=== PATIENT | female | born 1945 | race Caucasian/White ===

== ENCOUNTER 2016-06-16 07:38 | Inpatient (IN) | payer MEDICARE, OTHER ==
[~2016-06-16] VITALS: Ht 154.9 cm; Wt 62.6 kg
[2016-06-16 08:58] LABS: Basophils # (auto) 0.1 uL; Basophils % (auto) 0.6 % (0.0-2.0); Eosinophils # (auto) 0 uL; Eosinophils % (auto) 0.5 % (0.0-7.0); Hematocrit 42.6 % (36.0-46.0); Hemoglobin 13.4 g/dL (12.2-16.2); Lymphocytes # (auto) 1.1 uL; Lymphocytes % (auto) 12.5 % (10.0-50.0); Mean Corpuscular Hgb Conc. 31.4 g/dL (32.0-36.0); Mean Corpuscular Volume 92.4 fL (80.0-100.0); Mean Platelet Volume 7.9 fL (7.4-10.4); Monocytes # (auto) 0.6 uL; Monocytes % (auto) 7.4 % (0.0-12.0); Neutrophils # (auto) 6.7 uL; Platelet Count (auto) 258 10^3/uL (140-450); Red Cell Distribution Width 15.5 % (11.6-16.0); White Blood Cell 8.5 10^3/uL (4.4-10.8)
[2016-06-16 09:05] LABS: Bilirubin, Total 0.4 mg/dL (0.2-1.0); Potassium 3.8 mmol/L (3.5-5.1); Total Protein 6.9 g/dL (6.4-8.2)
[2016-06-16] MEDS ORDERED: FUROSEMIDE 40 MG/4 ML VIAL IV ONE ×2 (11:45→13:00)
[2016-06-16] MEDS ORDERED: LEVOFLOXACIN 500MG 100 ML IV ONE (11:45)
[2016-06-16 12:29] LABS: Urine Bilirubin Negative (Negative); Urine Blood Negative /uL (Negative); Urine Color Yellow (Yellow); Urine Glucose Normal (Normal); Urine Hyaline Cast FEW /lpf (0 - 2); Urine Ketone Negative (Negative); Urine Mucus FEW (None Seen); Urine Nitrite Negative (Negative); Urine RBC 1 /hpf (0 - 4); Urine Squamous Epithelial Cell MOD /hpf (<5); Urine Urobilinogen Normal (Negative); Urine pH 5.5 (5.0-8.0)
[2016-06-16] MEDS ORDERED: OSELTAMIVIR 75 MG CAP PO ONE (12:30)
[2016-06-16] MEDS ORDERED: PROMETHAZINE HCL 25 MG/ML 1ML IV PRN (12:30)
[2016-06-16] MEDS ORDERED: MORPHINE SULF INJ 2 MG/ML SYRINGE 1ML IV PRN (12:30)
[2016-06-16] MEDS ORDERED: ALBUTEROL SULF 2.5 MG/0.5ML(0.5%) NEB SOLN NEB PRN (12:30)
[2016-06-16] MEDS ORDERED: LACTULOSE 20Gm/30ML SOLN PO PRN (12:30)
[2016-06-16] MEDS ORDERED: NITROGLYCERIN 0.4 MG SL TAB SL PRN (12:30)
[2016-06-16] MEDS ORDERED: ACETAMINOPHEN 500 MG TAB PO PRN (12:30)
[2016-06-16] MEDS ORDERED: LORazepam 0.5 MG TAB PO PRN (12:30)
[2016-06-16 13:00] LABS: INR 1.03 (0.9-1.15); Partial Thromboplastin Time 23.8 sec (22.64-33.71); Prothrombin Time 10.6 sec (9.37-12.3)
[2016-06-16] MEDS ORDERED: ENALAPRIL MALEATE 2.5 MG TAB PO ONE (13:00)
[2016-06-16] MEDS ORDERED: ENOXAPARIN SOD 40 MG/0.4 ML SYRINGE SC ONE (13:00)
[2016-06-16] MEDS ORDERED: ASPirin 81 mg TAB PO ONE (13:00)
[2016-06-16] MEDS ORDERED: CARVEDILOL 3.125 MG TAB PO ONE (13:00)
[2016-06-16] MEDS: SODIUM CHLOR 0.9% PF (SALINE LOCK) 10ML VIAL IV SCH ×2 (14:03→22:00)
[2016-06-16 14:57] LABS: B-Type Natriuretic Peptide 1668.04 pg/mL (0-100)
[2016-06-16 14:58] LABS: Temperature: 21.9 C (20.0-25.0)
[2016-06-16 15:50] VITALS: BP 132/77
[2016-06-16 17:00] VITALS: BP 127/81
[2016-06-16] MEDS: HYDROcodone-ACET 5/325MG TAB PO PRN (19:40)
[2016-06-16] MEDS: IPRATROPIUM BROM 0.5 MG/2.5ML INH SOL NEB SCH (20:03)
[2016-06-16] MEDS: ALBUTEROL SULF 2.5 MG/0.5ML(0.5%) NEB SOLN NEB SCH (20:03)
[2016-06-16] MEDS: CARVEDILOL 3.125 MG TAB PO SCH (22:00)
[2016-06-16] MEDS: OSELTAMIVIR 75 MG CAP PO SCH (22:00)
[2016-06-16 22:39] VITALS: BP 142/84
[2016-06-17] MEDS: ALBUTEROL SULF 2.5 MG/0.5ML(0.5%) NEB SOLN NEB SCH ×4 (02:08→19:11)
[2016-06-17] MEDS: IPRATROPIUM BROM 0.5 MG/2.5ML INH SOL NEB SCH ×4 (02:08→19:11)
[2016-06-17 03:25] VITALS: BP 138/79
[2016-06-17] MEDS: MORPHINE SULF INJ 2 MG/ML SYRINGE 1ML IV PRN (04:32)
[2016-06-17 05:10] VITALS: BP 133/84
[2016-06-17] MEDS: SODIUM CHLOR 0.9% PF (SALINE LOCK) 10ML VIAL IV SCH ×3 (05:42→21:31)
[2016-06-17 06:26] LABS: Basophils # (auto) 0.1 uL; Basophils % (auto) 0.7 % (0.0-2.0); Eosinophils # (auto) 0.2 uL; Eosinophils % (auto) 2.4 % (0.0-7.0); Hematocrit 41.3 % (36.0-46.0); Hemoglobin 13.3 g/dL (12.2-16.2); Lymphocytes # (auto) 1.8 uL; Mean Corpuscular Hemoglobin 29.5 pg (28.0-32.0); Mean Corpuscular Hgb Conc. 32.1 g/dL (32.0-36.0); Mean Corpuscular Volume 92.1 fL (80.0-100.0); Mean Platelet Volume 8.2 fL (7.4-10.4); Monocytes # (auto) 0.9 uL; Monocytes % (auto) 11.2 % (0.0-12.0); Neutrophils # (auto) 5.1 uL; Neutrophils % (auto) 63.7 % (37.0-80.0); Platelet Count (auto) 241 10^3/uL (140-450); Red Cell Distribution Width 15.1 % (11.6-16.0)
[2016-06-17 07:06] LABS: Albumin 2.8 g/dL (3.4-5.0); BUN/Creatinine Ratio 29.4; Bilirubin, Total 0.5 mg/dL (0.2-1.0); Calcium 7.9 mg/dL (8.5-10.1); Potassium 3.5 mmol/L (3.5-5.1); Total Protein 6.5 g/dL (6.4-8.2)
[2016-06-17 08:40] VITALS: BP 136/81
[2016-06-17 10:00] LABS: B-Type Natriuretic Peptide 2255.26 pg/mL (0-100); Temperature: 22.5 C (20.0-25.0)
[2016-06-17] MEDS ORDERED: ENALAPRIL MALEATE 2.5 MG TAB PO SCH (10:00)
[2016-06-17] MEDS ORDERED: POTASSIUM CHL 20 Meq TABLET PO SCH (10:00)
[2016-06-17] MEDS ORDERED: FUROSEMIDE 40 MG/4 ML VIAL IV SCH (10:00)
[2016-06-17] MEDS ORDERED: LEVOFLOXACIN 500MG 100 ML IV SCH (10:00)
[2016-06-17] MEDS: ENOXAPARIN SOD 40 MG/0.4 ML SYRINGE SC SCH (11:06)
[2016-06-17] MEDS: ASPirin 81 mg TAB PO SCH (11:08)
[2016-06-17] MEDS: CARVEDILOL 3.125 MG TAB PO SCH ×2 (11:09→21:31)
[2016-06-17] MEDS: OSELTAMIVIR 75 MG CAP PO SCH ×2 (11:10→22:00)
[2016-06-17 12:44] VITALS: BP 116/64
[2016-06-17 17:27] VITALS: BP 137/77
[2016-06-17] MEDS ORDERED: ASPI-231 PO (17:53)
[2016-06-17] MEDS ORDERED: DIPH25CA66 PO (17:53)
[2016-06-17] MEDS: POTASSIUM CHL 20 Meq TABLET PO SCH (20:06)
[2016-06-17] MEDS: FUROSEMIDE 40 MG/4 ML VIAL IV SCH (20:12)
[2016-06-17] MEDS: TEMAZEPAM 15 MG CAP PO PRN (21:30)
[2016-06-17 21:49] VITALS: BP 134/87
[2016-06-17] MEDS: HYDROcodone-ACET 5/325MG TAB PO PRN (23:29)
[2016-06-18 04:36] VITALS: BP 107/61
[2016-06-18 05:38] LABS: BUN/Creatinine Ratio 33.3; Calcium 8.4 mg/dL (8.5-10.1); Potassium 3.9 mmol/L (3.5-5.1)
[2016-06-18] MEDS: POTASSIUM CHL 20 Meq TABLET PO SCH ×2 (05:45→18:32)
[2016-06-18] MEDS: FUROSEMIDE 40 MG/4 ML VIAL IV SCH ×2 (05:45→18:31)
[2016-06-18] MEDS: SODIUM CHLOR 0.9% PF (SALINE LOCK) 10ML VIAL IV SCH ×3 (05:46→22:24)
[2016-06-18] MEDS: ALBUTEROL SULF 2.5 MG/0.5ML(0.5%) NEB SOLN NEB SCH ×4 (06:05→18:37)
[2016-06-18] MEDS: IPRATROPIUM BROM 0.5 MG/2.5ML INH SOL NEB SCH ×4 (06:05→18:37)
[2016-06-18 06:07] LABS: B-Type Natriuretic Peptide 1424.65 pg/mL (0-100); Temperature: 20.6 C (20.0-25.0)
[2016-06-18] MEDS: ENALAPRIL MALEATE 2.5 MG TAB PO SCH (08:59)
[2016-06-18] MEDS: CARVEDILOL 3.125 MG TAB PO SCH ×2 (08:59→22:25)
[2016-06-18 09:00] VITALS: BP 122/75
[2016-06-18] MEDS: ASPirin 81 mg TAB PO SCH (09:00)
[2016-06-18] MEDS: ENOXAPARIN SOD 40 MG/0.4 ML SYRINGE SC SCH (09:00)
[2016-06-18] MEDS ORDERED: cefTRIAXone 1GM/50ML D5W 50 ML IV ONE (11:30)
[2016-06-18 13:00] VITALS: BP 95/53
[2016-06-18 16:53] VITALS: BP 99/65
[2016-06-18 22:00] VITALS: BP 119/75
[2016-06-18] MEDS: TEMAZEPAM 15 MG CAP PO PRN (22:24)
[2016-06-19 05:00] VITALS: BP 125/57
[2016-06-19] MEDS: POTASSIUM CHL 20 Meq TABLET PO SCH ×2 (05:36→17:57)
[2016-06-19] MEDS: SODIUM CHLOR 0.9% PF (SALINE LOCK) 10ML VIAL IV SCH ×3 (05:36→21:55)
[2016-06-19] MEDS: FUROSEMIDE 40 MG/4 ML VIAL IV SCH ×2 (05:36→17:57)
[2016-06-19] MEDS: IPRATROPIUM BROM 0.5 MG/2.5ML INH SOL NEB SCH ×4 (06:38→19:04)
[2016-06-19] MEDS: ALBUTEROL SULF 2.5 MG/0.5ML(0.5%) NEB SOLN NEB SCH ×4 (06:38→19:04)
[2016-06-19 09:00] VITALS: BP 110/75
[2016-06-19] MEDS: CARVEDILOL 3.125 MG TAB PO SCH ×2 (10:00→21:45)
[2016-06-19] MEDS: ENOXAPARIN SOD 40 MG/0.4 ML SYRINGE SC SCH (11:36)
[2016-06-19] MEDS: cefTRIAXone 1GM/50ML D5W 50 ML IV SCH (11:36)
[2016-06-19] MEDS: ASPirin 81 mg TAB PO SCH (11:36)
[2016-06-19] MEDS: ENALAPRIL MALEATE 2.5 MG TAB PO SCH (11:36)
[2016-06-19 13:00] VITALS: BP 101/55
[2016-06-19 16:57] VITALS: BP 121/66
[2016-06-19] MEDS: TEMAZEPAM 15 MG CAP PO PRN (21:45)
[2016-06-19] MEDS: HYDROcodone-ACET 5/325MG TAB PO PRN (21:46)
[2016-06-19 22:00] VITALS: BP 116/59
[2016-06-20] MEDS: ALBUTEROL SULF 2.5 MG/0.5ML(0.5%) NEB SOLN NEB SCH ×4 (00:50→18:25)
[2016-06-20] MEDS: IPRATROPIUM BROM 0.5 MG/2.5ML INH SOL NEB SCH ×4 (00:50→18:25)
[2016-06-20 01:44] VITALS: BP 116/59
[2016-06-20 05:00] VITALS: BP 112/72
[2016-06-20] MEDS: POTASSIUM CHL 20 Meq TABLET PO SCH ×2 (05:31→18:20)
[2016-06-20] MEDS: HYDROcodone-ACET 5/325MG TAB PO PRN (05:32)
[2016-06-20] MEDS: FUROSEMIDE 40 MG/4 ML VIAL IV SCH ×2 (05:32→18:20)
[2016-06-20] MEDS: SODIUM CHLOR 0.9% PF (SALINE LOCK) 10ML VIAL IV SCH ×3 (05:38→22:02)
[2016-06-20 09:00] VITALS: BP 105/63
[2016-06-20] MEDS: cefTRIAXone 1GM/50ML D5W 50 ML IV SCH (09:47)
[2016-06-20] MEDS: ASPirin 81 mg TAB PO SCH (09:51)
[2016-06-20] MEDS: ENALAPRIL MALEATE 2.5 MG TAB PO SCH (09:53)
[2016-06-20] MEDS: CARVEDILOL 3.125 MG TAB PO SCH ×2 (09:53→22:03)
[2016-06-20] MEDS: ENOXAPARIN SOD 40 MG/0.4 ML SYRINGE SC SCH (09:54)
[2016-06-20 13:00] VITALS: BP 108/50
[2016-06-20 13:33] LABS: BUN/Creatinine Ratio 37.5; Calcium 9.1 mg/dL (8.5-10.1); Potassium 4.7 mmol/L (3.5-5.1)
[2016-06-20 13:59] LABS: B-Type Natriuretic Peptide 325.31 pg/mL (0-100); Temperature: 22.3 C (20.0-25.0)
[2016-06-20 16:53] VITALS: BP 121/96
[2016-06-20] MEDS: MORPHINE SULF INJ 2 MG/ML SYRINGE 1ML IV PRN (18:57)
[2016-06-20 22:00] VITALS: BP 114/76
[2016-06-20] MEDS: TEMAZEPAM 15 MG CAP PO PRN (22:45)
[2016-06-21] MEDS: ALBUTEROL SULF 2.5 MG/0.5ML(0.5%) NEB SOLN NEB SCH ×3 (00:28→13:20)
[2016-06-21] MEDS: IPRATROPIUM BROM 0.5 MG/2.5ML INH SOL NEB SCH ×3 (00:28→13:20)
[2016-06-21 05:00] VITALS: BP 119/74
[2016-06-21] MEDS: POTASSIUM CHL 20 Meq TABLET PO SCH (05:40)
[2016-06-21] MEDS: FUROSEMIDE 40 MG/4 ML VIAL IV SCH (05:40)
[2016-06-21] MEDS: HYDROcodone-ACET 5/325MG TAB PO PRN (05:41)
[2016-06-21] MEDS: SODIUM CHLOR 0.9% PF (SALINE LOCK) 10ML VIAL IV SCH (06:16)
[2016-06-21 09:00] VITALS: BP 99/69
[2016-06-21] MEDS: cefTRIAXone 1GM/50ML D5W 50 ML IV SCH (09:47)
[2016-06-21] MEDS: ENOXAPARIN SOD 40 MG/0.4 ML SYRINGE SC SCH (09:47)
[2016-06-21] MEDS: CARVEDILOL 3.125 MG TAB PO SCH (09:47)
[2016-06-21] MEDS: ASPirin 81 mg TAB PO SCH (09:48)
[2016-06-21] MEDS: ENALAPRIL MALEATE 2.5 MG TAB PO SCH (09:55)
[2016-06-21 13:00] VITALS: BP 119/98
[2016-06-21 13:54] VITALS: BP 119/98
== END 2016-06-21 16:15 | disposition home or self-care (01) | DRG 291 ==
LOC: ER 07:46 → TELE 07:47 → TELE-EAST 14:42
PROVIDERS: ADMIT Internal Medicine; ATTEND Internal Medicine Pulmonary Disease
DX: I11.0 Hypertensive heart disease with heart failure (principal); J18.9 Pneumonia, unspecified organism; J96.00 Acute respiratory failure, unspecified whether with hypoxia or hypercapnia; N39.0 Urinary tract infection, site not specified; J44.1 Chronic obstructive pulmonary disease with (acute) exacerbation; I50.43 Acute on chronic combined systolic (congestive) and diastolic (congestive) heart failure; E78.5 Hyperlipidemia, unspecified; F17.210 Nicotine dependence, cigarettes, uncomplicated; Z80.3 Family history of malignant neoplasm of breast; Z81.8 Family history of other mental and behavioral disorders; Z82.3 Family history of stroke; Z82.49 Family history of ischemic heart disease and other diseases of the circulatory system; Z83.3 Family history of diabetes mellitus
CPT/HCPCS: 36415; 36600; 71010; 71020; 80048; 80053; 80061; 81001; 82550; 82805; 83605; 83735; 83880; 84443; 84484; 85025; 85610; 85730; 87040; 87086; 87088; 87186; 87400; 93005; 93306; 94640; 96365; 96372; 96375; 96376; J0696; J1956

== ENCOUNTER → 2016-07-27 | Outpatient (CLI) | payer MEDICARE, OTHER ==
[~2016-07-27] MED LIST: ALBUTEROL SULF 2.5 MG/0.5ML(0.5%) NEB SOLN ONE; ASPI-231 PO; DIPH25CA66 PO
== END | disposition home or self-care (01) ==
LOC: RT 08:38
PROVIDERS: ATTEND Internal Medicine Pulmonary Disease
DX: R06.09 Other forms of dyspnea (principal)
CPT/HCPCS: 94060

== ENCOUNTER → 2016-07-28 | Outpatient (CLI) | payer MEDICARE, OTHER ==
[~2016-07-28] MED LIST changes: -ALBUTEROL SULF 2.5 MG/0.5ML(0.5%) NEB SOLN ONE
[2016-07-28 15:10] LABS: Albumin 3.5 g/dL (3.4-5.0); BUN/Creatinine Ratio 29.5; Bilirubin, Total 0.1 mg/dL (0.2-1.0); Calcium 9.2 mg/dL (8.5-10.1); Cholesterol 257 mg/dL (<200); HDL Cholesterol 39 mg/dL (40-59); LDL Cholesterol 180 mg/dL (<100); Potassium 4.6 mmol/L (3.5-5.1); Total Protein 8.3 g/dL (6.4-8.2); Triglycerides 368 mg/dL (<150)
[2016-07-28 15:15] LABS: Urine Bilirubin Negative (Negative); Urine Blood Negative /uL (Negative); Urine Color Yellow (Yellow); Urine Glucose Normal (Normal); Urine Hyaline Cast FEW /lpf (0 - 2); Urine Ketone Negative (Negative); Urine Nitrite Negative (Negative); Urine RBC <1 /hpf (0 - 4); Urine Squamous Epithelial Cell FEW /hpf (<5); Urine Urobilinogen Normal (Negative)
[2016-07-28 15:20] LABS: Basophils # (auto) 0 uL; Basophils % (auto) 0.4 % (0.0-2.0); Eosinophils # (auto) 0.6 uL; Eosinophils % (auto) 7.5 % (0.0-7.0); Hematocrit 43.6 % (36.0-46.0); Hemoglobin 13.6 g/dL (12.2-16.2); Mean Corpuscular Hgb Conc. 31.2 g/dL (32.0-36.0); Mean Corpuscular Volume 89.6 fL (80.0-100.0); Mean Platelet Volume 8.7 fL (7.4-10.4); Monocytes # (auto) 0.8 uL; Monocytes % (auto) 9.8 % (0.0-12.0); Neutrophils # (auto) 4.6 uL; Neutrophils % (auto) 57.3 % (37.0-80.0); Platelet Count (auto) 314 10^3/uL (140-450); Red Cell Distribution Width 14.5 % (11.6-16.0); White Blood Cell 8.1 10^3/uL (4.4-10.8)
== END | disposition home or self-care (01) ==
LOC: LAB 12:59
DX: I50.9 Heart failure, unspecified (principal)
CPT/HCPCS: 36415; 80053; 80061; 81001; 84443; 85025

== ENCOUNTER → 2016-10-24 | Outpatient (CLI) | payer MEDICARE, OTHER ==
[2016-10-24 10:06] LABS: Urine RBC None Seen /hpf (0 - 4)
[2016-10-24 10:18] LABS: Basophils # (auto) 0.1 uL; Basophils % (auto) 0.9 % (0.0-2.0); Eosinophils # (auto) 0.6 uL; Eosinophils % (auto) 6.2 % (0.0-7.0); Hematocrit 41.8 % (36.0-46.0); Hemoglobin 14.4 g/dL (12.2-16.2); Lymphocytes # (auto) 2.6 uL; Lymphocytes % (auto) 27.6 % (10.0-50.0); Mean Corpuscular Hemoglobin 32.3 pg (28.0-32.0); Mean Corpuscular Hgb Conc. 34.4 g/dL (32.0-36.0); Mean Corpuscular Volume 93.8 fL (80.0-100.0); Mean Platelet Volume 8.4 fL (7.4-10.4); Monocytes # (auto) 0.6 uL; Monocytes % (auto) 6.9 % (0.0-12.0); Neutrophils # (auto) 5.5 uL; Neutrophils % (auto) 58.4 % (37.0-80.0); Platelet Count (auto) 264 10^3/uL (140-450); Red Cell Distribution Width 13.3 % (11.6-16.0); White Blood Cell 9.4 10^3/uL (4.4-10.8)
[2016-10-24 10:25] LABS: Urine Bilirubin Negative (Negative); Urine Blood Negative /uL (Negative); Urine Color Yellow (Yellow); Urine Glucose Normal (Normal); Urine Ketone Negative (Negative); Urine Nitrite Negative (Negative); Urine Squamous Epithelial Cell FEW /hpf (<5); Urine Urobilinogen Normal (Negative)
[2016-10-24 10:32] LABS: Albumin 4.1 g/dL (3.4-5.0); BUN/Creatinine Ratio 23.3; Bilirubin, Total 0.2 mg/dL (0.2-1.0); Calcium 9.4 mg/dL (8.5-10.1); Potassium 4.6 mmol/L (3.5-5.1); Total Protein 8.5 g/dL (6.4-8.2)
== END | disposition home or self-care (01) ==
LOC: LAB 09:48
DX: I10 Essential (primary) hypertension (principal)
CPT/HCPCS: 36415; 80053; 80061; 81001; 84443; 85025

== ENCOUNTER → 2017-02-21 | Outpatient (CLI) | payer MEDICARE | END | disposition home or self-care (01) | LOC: XYW 09:17 | PROVIDERS: ATTEND Internal Medicine | DX: I35.8 Other nonrheumatic aortic valve disorders (principal); I50.9 Heart failure, unspecified | CPT/HCPCS: 93306 ==

== ENCOUNTER 2017-03-19 12:11 | Inpatient (IN) | payer MEDICARE ==
[~2017-03-19] VITALS: Ht 152.4 cm; Wt 55.5 kg
[2017-03-19] VITALS (11 sets, daily range): BP systolic 106–148; BP diastolic 52–115
[2017-03-19] MEDS ORDERED: SODIUM CHLORIDE 0.9% 1,000 ML IVB ONE (12:41)
[2017-03-19 13:18] LABS: Hemoglobin 12.6 g/dL (12.2-16.2); Mean Corpuscular Hemoglobin 30.3 pg (28.0-32.0); Mean Corpuscular Hgb Conc. 33.1 g/dL (32.0-36.0); Mean Corpuscular Volume 91.5 fL (80.0-100.0); Mean Platelet Volume 8.2 fL (6.9-10.8); Platelet Count (auto) 214 10^3/uL (140-450); Red Cell Distribution Width 14.3 % (11.8-14.3)
[2017-03-19 13:24] LABS: White Blood Cell 33.7 10^3/uL (4.4-10.8)
[2017-03-19 13:26] LABS: INR 1.03 (0.9-1.15); Partial Thromboplastin Time 30.6 sec (22.64-33.71); Prothrombin Time 11.2 sec (9.37-12.3)
[2017-03-19 13:40] LABS: Albumin 3.4 g/dL (3.4-5.0); Amylase 39 U/L (25-115); BUN/Creatinine Ratio 16.8; Bilirubin, Total 0.7 mg/dL (0.2-1.0); Calcium 8.7 mg/dL (8.5-10.1); Magnesium 2.2 mg/dL (1.6-2.6); Total Protein 8.3 g/dL (6.4-8.2)
[2017-03-19 13:54] LABS: Metamyelocytes % 0; Myelocytes % 0; Promyelocytes % 0; Reactive Lymphocytes 0
[2017-03-19 13:55] LABS: Anisocytosis Slight; Platelet Estimate Adequate; Poikilocytosis Slight
[2017-03-19] MEDS ORDERED: cefTRIAXone 1GM/50ML D5W 50 ML IV ONE (14:00)
[2017-03-19] MEDS ORDERED: SODIUM CHLORIDE 0.9% 1,000 ML IV ONE (14:00)
[2017-03-19 14:05] LABS: Urine Bilirubin Negative (Negative); Urine Blood 2+ /uL (Negative); Urine Color Yellow (Yellow); Urine Glucose Normal (Normal); Urine Ketone Negative (Negative); Urine Mucus FEW (None Seen); Urine Nitrite POSITIVE (Negative); Urine RBC 6 /hpf (0 - 4); Urine Urobilinogen Normal (Negative); Urine WBC Clumps PRESENT /hpf (None Seen); Urine pH 5.5 (5.0-8.0)
[2017-03-19] MEDS ORDERED: VANCOMYCIN PER PHARMACY 0 MG IV SCH ×2 (15:15→15:30)
[2017-03-19] MEDS ORDERED: MORPHINE SULF INJ 2 MG/ML SYRINGE 1ML IV PRN (15:30)
[2017-03-19] MEDS ORDERED: NITROGLYCERIN 0.4 MG SL TAB SL PRN (15:30)
[2017-03-19] MEDS ORDERED: TEMAZEPAM 15 MG CAP PO PRN (15:30)
[2017-03-19] MEDS ORDERED: LORazepam 0.5 MG TAB PO PRN (15:30)
[2017-03-19] MEDS ORDERED: DEXTROSE (50%) 50ML SYRG IV PRN (15:30)
[2017-03-19] MEDS ORDERED: PIPERACILLIN-TAZOB 2.25GM 50 ML IV ONE (15:55)
[2017-03-19] MEDS ORDERED: ACETAMINOPHEN 325 MG TAB PO ONE ×2 (16:15)
[2017-03-19] MEDS ORDERED: VANCOMYCIN 1GM/250ML D5W 250 ML IV ONE (16:15)
[2017-03-19] MEDS: FAMOTIDINE (10MG/ML) 2ML VL IV SCH (16:29)
[2017-03-19] MEDS: SODIUM CHLORIDE 0.9% 1,000 ML IV SCH (16:43)
[2017-03-19] MEDS: MORPHINE SULF INJ 2 MG/ML SYRINGE 1ML IV PRN (16:51)
[2017-03-19] MEDS: PROMETHAZINE HCL 25 MG/ML 1ML IV PRN (16:51)
[2017-03-19] MEDS ORDERED: PIPERACILLIN-TAZOB 3.375GM 100 ML IV SCH (18:00)
[2017-03-19] MEDS: ACCU-CHEK COMFORT CURVE STRIP VI SCH (19:47)
[2017-03-19] MEDS: ACETAMINOPHEN 500 MG TAB PO PRN (19:47)
[2017-03-19] MEDS ORDERED: CARV6.2551 PO (23:31)
[2017-03-19] MEDS ORDERED: ATOR10TA52 PO (23:31)
[2017-03-19] MEDS ORDERED: POTA20TA53 PO (23:31)
[2017-03-19] MEDS ORDERED: FURO40TA4 PO (23:31)
[2017-03-19] MEDS ORDERED: VALS80TA44 PO (23:31)
[2017-03-19] MEDS ORDERED: ALBU18 IN (23:31)
[2017-03-19] MEDS ORDERED: IBUPROFEN 600 MG TAB PO ONE (23:50)
[2017-03-20] VITALS (59 sets, daily range): BP systolic 42–171; BP diastolic 17–101
[2017-03-20] MEDS ORDERED: IBUPROFEN 600 MG TAB PO ONE
[2017-03-20] MEDS ORDERED: ACETAMINOPHEN 650 MG RECT SUPP PR ONE (00:27)
[2017-03-20] MEDS ORDERED: LORazepam 2MG/ML-1ML VIAL IV ONE (00:30)
[2017-03-20] MEDS ORDERED: LORazepam 2MG/ML-1ML VIAL ONE ×2 (00:35→06:52)
[2017-03-20] MEDS: ACETAMINOPHEN 650 MG RECT SUPP PR PRN ×2 (01:03→06:15)
[2017-03-20] MEDS: SODIUM CHLORIDE 0.9% 1,000 ML IV SCH ×4 (01:30→12:00)
[2017-03-20] MEDS: IPRATROPIUM BROM 0.5 MG/2.5ML INH SOL NEB PRN ×2 (02:15→08:50)
[2017-03-20] MEDS: ALBUTEROL SULF 2.5 MG/0.5ML(0.5%) NEB SOLN NEB PRN ×2 (02:15→08:50)
[2017-03-20 04:09] LABS: Basophils # (auto) 0 uL; Basophils % (auto) 0.2 % (0.0-2.0); Eosinophils # (auto) 0 uL; Hematocrit 35.7 % (36.0-46.0); Hemoglobin 11.5 g/dL (12.2-16.2); Lymphocytes # (auto) 0.7 uL; Lymphocytes % (auto) 2.9 % (10.0-50.0); Mean Corpuscular Hemoglobin 30.2 pg (28.0-32.0); Mean Corpuscular Hgb Conc. 32.3 g/dL (32.0-36.0); Mean Corpuscular Volume 93.4 fL (80.0-100.0); Mean Platelet Volume 8.1 fL (6.9-10.8); Monocytes # (auto) 1.3 uL; Monocytes % (auto) 5.4 % (0.0-12.0); Neutrophils # (auto) 22.5 uL; Neutrophils % (auto) 91.5 % (37.0-80.0); Nucleated Red Blood Cells % 0.2 %; Platelet Count (auto) 171 10^3/uL (140-450); Red Cell Distribution Width 14.5 % (11.8-14.3); White Blood Cell 24.6 10^3/uL (4.4-10.8)
[2017-03-20 04:26] LABS: Albumin 2.7 g/dL (3.4-5.0); Calcium 7.5 mg/dL (8.5-10.1); Potassium 3.5 mmol/L (3.5-5.1)
[2017-03-20 04:35] LABS: BUN/Creatinine Ratio 14.3; Bilirubin, Total 0.4 mg/dL (0.2-1.0); Total Protein 6.2 g/dL (6.4-8.2)
[2017-03-20] MEDS: ACCU-CHEK COMFORT CURVE STRIP VI SCH ×4 (05:50→17:38)
[2017-03-20] MEDS: PIPERACILLIN-TAZOB 2.25GM 50 ML IV SCH ×4 (05:50→17:50)
[2017-03-20] MEDS: LORazepam 2MG/ML-1ML VIAL IV PRN ×2 (07:02→14:50)
[2017-03-20] MEDS: FAMOTIDINE (10MG/ML) 2ML VL IV SCH (10:31)
[2017-03-20] MEDS: ENOXAPARIN SOD 40 MG/0.4 ML SYRINGE SC SCH (10:32)
[2017-03-20] MEDS: BOOST PLUS 8 ounce PO SCH ×2 (12:00→18:00)
[2017-03-20] MEDS: VANCOMYCIN 1GM/250ML D5W 250 ML IV SCH (12:34)
[2017-03-20] MEDS: MORPHINE SULF INJ 2 MG/ML SYRINGE 1ML IV PRN ×2 (12:38→21:59)
[2017-03-20] MEDS ORDERED: NOREPINEPHRINE BITARTRATE 250 ML IV ONE (15:26)
[2017-03-20] MEDS: ACETAMINOPHEN 500 MG TAB PO PRN ×2 (15:50→21:59)
[2017-03-20] MEDS: NOREPINEPHRINE BITARTRATE 250 ML IV SCH (16:30)
[2017-03-20] MEDS: ALBUMIN 25% 100 ML IV SCH ×2 (18:16→19:00)
[2017-03-20] MEDS: IPRATROPIUM BROM 0.5 MG/2.5ML INH SOL NEB SCH (18:28)
[2017-03-20] MEDS: ALBUTEROL SULF 2.5 MG/0.5ML(0.5%) NEB SOLN NEB SCH (18:28)
[2017-03-20] MEDS ORDERED: PHENAZOPYRIDINE HCL 100 MG TAB PO ONE (21:45)
[2017-03-20] MEDS ORDERED: KETOROLAC TROMETH 30 MG/ML 1ML VIAL ONE (22:27)
[2017-03-20] MEDS ORDERED: KETOROLAC TROMETH 30 MG/ML 1ML VIAL IV ONE (22:30)
[2017-03-21] VITALS (31 sets, daily range): BP systolic 81–166; BP diastolic 35–88
[2017-03-21] MEDS: ALBUTEROL SULF 2.5 MG/0.5ML(0.5%) NEB SOLN NEB SCH ×4 (00:09→18:25)
[2017-03-21] MEDS: IPRATROPIUM BROM 0.5 MG/2.5ML INH SOL NEB SCH ×4 (00:09→18:25)
[2017-03-21] MEDS: ACCU-CHEK COMFORT CURVE STRIP VI SCH ×5 (00:30→23:51)
[2017-03-21] MEDS: HYDROcodone-ACET 5/325MG TAB PO PRN ×3 (00:49→20:34)
[2017-03-21] MEDS: ALBUTEROL SULF 2.5 MG/0.5ML(0.5%) NEB SOLN NEB PRN (03:44)
[2017-03-21] MEDS: IPRATROPIUM BROM 0.5 MG/2.5ML INH SOL NEB PRN (03:44)
[2017-03-21] MEDS: SODIUM CHLORIDE 0.9% 1,000 ML IV SCH (03:58)
[2017-03-21 04:09] LABS: Basophils # (auto) 0 uL; Basophils % (auto) 0.3 % (0.0-2.0); Eosinophils # (auto) 0 uL; Hematocrit 31.1 % (36.0-46.0); Hemoglobin 10.2 g/dL (12.2-16.2); Lymphocytes # (auto) 0.5 uL; Lymphocytes % (auto) 4.1 % (10.0-50.0); Mean Corpuscular Hemoglobin 30.2 pg (28.0-32.0); Mean Corpuscular Hgb Conc. 32.8 g/dL (32.0-36.0); Mean Corpuscular Volume 92.2 fL (80.0-100.0); Mean Platelet Volume 8.4 fL (6.9-10.8); Monocytes # (auto) 0.7 uL; Neutrophils # (auto) 10.1 uL; Neutrophils % (auto) 89.6 % (37.0-80.0); Platelet Count (auto) 143 10^3/uL (140-450); Red Cell Distribution Width 14.5 % (11.8-14.3); White Blood Cell 11.3 10^3/uL (4.4-10.8)
[2017-03-21 04:39] LABS: Albumin 2.6 g/dL (3.4-5.0); BUN/Creatinine Ratio 19.5; Calcium 7.5 mg/dL (8.5-10.1)
[2017-03-21 04:50] LABS: Bilirubin, Total 0.3 mg/dL (0.2-1.0); Total Protein 5.4 g/dL (6.4-8.2)
[2017-03-21 04:57] LABS: Potassium 2.9 mmol/L (3.5-5.1)
[2017-03-21 05:40] LABS: Temperature: 21.8 C (20.0-25.0)
[2017-03-21] MEDS: PIPERACILLIN-TAZOB 2.25GM 50 ML IV SCH ×3 (06:13→12:00)
[2017-03-21] MEDS ORDERED: POTASSIUM CHL 10% (20 MEQ/15ML) 15ml ORAL SOLN PO ONE (06:15)
[2017-03-21] MEDS: BOOST PLUS 8 ounce PO SCH ×3 (08:00→18:09)
[2017-03-21] MEDS: PHENAZOPYRIDINE HCL 100 MG TAB PO SCH ×3 (09:30→18:09)
[2017-03-21] MEDS: ENOXAPARIN SOD 40 MG/0.4 ML SYRINGE SC SCH (09:47)
[2017-03-21] MEDS: FAMOTIDINE (10MG/ML) 2ML VL IV SCH (09:47)
[2017-03-21] MEDS ORDERED: NICOTINE 14 MG/24HR TOPICAL PATCH TD ONE (10:45)
[2017-03-21] MEDS: VANCOMYCIN 1GM/250ML D5W 250 ML IV SCH (11:26)
[2017-03-21] MEDS: ACETAMINOPHEN 500 MG TAB PO PRN (13:00)
[2017-03-21] MEDS ORDERED: SODIUM CHLORIDE 0.9% 1,000 ML IV SCH (15:28)
[2017-03-21] MEDS: NOREPINEPHRINE BITARTRATE 250 ML IV SCH (15:57)
[2017-03-21] MEDS ORDERED: POTASSIUM CHL 20 Meq TABLET PO ONE (16:00)
[2017-03-21] MEDS ORDERED: KETOROLAC TROMETH 30 MG/ML 1ML VIAL IV ONE (21:15)
[2017-03-21] MEDS: cefTRIAXone 1GM/50ML D5W 50 ML IV SCH (21:18)
[2017-03-21] MEDS ORDERED: MORPHINE SULF INJ 2 MG/ML SYRINGE 1ML IV PRN (23:00)
[2017-03-21] MEDS ORDERED: NITROGLYCERIN 0.4 MG SL TAB SL PRN (23:00)
[2017-03-22] MEDS: IPRATROPIUM BROM 0.5 MG/2.5ML INH SOL NEB SCH ×4 (00:29→19:52)
[2017-03-22] MEDS: ALBUTEROL SULF 2.5 MG/0.5ML(0.5%) NEB SOLN NEB SCH ×4 (00:29→19:52)
[2017-03-22 05:00] VITALS: BP 115/65
[2017-03-22] MEDS: ACCU-CHEK COMFORT CURVE STRIP VI SCH (06:06)
[2017-03-22 06:28] LABS: Basophils # (auto) 0 uL; Basophils % (auto) 0.6 % (0.0-2.0); Eosinophils # (auto) 0.3 uL; Eosinophils % (auto) 3.8 % (0.0-7.0); Hematocrit 31.4 % (36.0-46.0); Hemoglobin 10.3 g/dL (12.2-16.2); Lymphocytes # (auto) 0.7 uL; Lymphocytes % (auto) 10.4 % (10.0-50.0); Mean Corpuscular Hemoglobin 30.4 pg (28.0-32.0); Mean Corpuscular Hgb Conc. 32.7 g/dL (32.0-36.0); Mean Corpuscular Volume 92.9 fL (80.0-100.0); Mean Platelet Volume 8.8 fL (6.9-10.8); Monocytes # (auto) 0.9 uL; Monocytes % (auto) 12.5 % (0.0-12.0); Neutrophils % (auto) 72.7 % (37.0-80.0); Platelet Count (auto) 146 10^3/uL (140-450); White Blood Cell 6.9 10^3/uL (4.4-10.8)
[2017-03-22 06:35] LABS: Potassium 3.6 mmol/L (3.5-5.1)
[2017-03-22 06:40] LABS: BUN/Creatinine Ratio 20.6; Calcium 8.2 mg/dL (8.5-10.1)
[2017-03-22] MEDS: BOOST PLUS 8 ounce PO SCH ×3 (08:00→18:17)
[2017-03-22] MEDS: HYDROcodone-ACET 5/325MG TAB PO PRN (08:40)
[2017-03-22] MEDS: FAMOTIDINE (10MG/ML) 2ML VL IV SCH (08:40)
[2017-03-22] MEDS: PHENAZOPYRIDINE HCL 100 MG TAB PO SCH ×2 (08:40→11:47)
[2017-03-22] MEDS: ENOXAPARIN SOD 40 MG/0.4 ML SYRINGE SC SCH (08:41)
[2017-03-22] MEDS: NICOTINE 14 MG/24HR TOPICAL PATCH TD SCH (08:41)
[2017-03-22] MEDS: cefTRIAXone 1GM/50ML D5W 50 ML IV SCH ×2 (08:51→21:13)
[2017-03-22 09:00] VITALS: BP 133/88
[2017-03-22] MEDS ORDERED: FUROSEMIDE 40 MG/4 ML VIAL IV ONE (10:15)
[2017-03-22] MEDS ORDERED: POTASSIUM CHL 10 Meq TABLET PO ONE (10:15)
[2017-03-22] MEDS: PROMETHAZINE HCL 25 MG/ML 1ML IV PRN (11:15)
[2017-03-22 13:00] VITALS: BP 145/89
[2017-03-22 17:00] VITALS: BP 120/69
[2017-03-22] MEDS ORDERED: PHENAZOPYRIDINE HCL 100 MG TAB PO SCH (18:00)
[2017-03-22 22:23] VITALS: BP 148/75
[2017-03-22] MEDS: CARVEDILOL 3.125 MG TAB PO SCH (22:34)
[2017-03-23 05:00] VITALS: BP 154/67
[2017-03-23 06:10] LABS: Basophils # (auto) 0 uL; Basophils % (auto) 0.4 % (0.0-2.0); Eosinophils # (auto) 0.1 uL; Eosinophils % (auto) 1.7 % (0.0-7.0); Hematocrit 33.3 % (36.0-46.0); Lymphocytes # (auto) 0.9 uL; Lymphocytes % (auto) 12.3 % (10.0-50.0); Mean Corpuscular Hemoglobin 30.2 pg (28.0-32.0); Mean Corpuscular Hgb Conc. 33.1 g/dL (32.0-36.0); Mean Corpuscular Volume 91.4 fL (80.0-100.0); Mean Platelet Volume 8.5 fL (6.9-10.8); Monocytes # (auto) 1.1 uL; Monocytes % (auto) 14.5 % (0.0-12.0); Neutrophils # (auto) 5.4 uL; Neutrophils % (auto) 71.1 % (37.0-80.0); Platelet Count (auto) 158 10^3/uL (140-450); Red Cell Distribution Width 14.7 % (11.8-14.3); White Blood Cell 7.6 10^3/uL (4.4-10.8)
[2017-03-23] MEDS: ALBUTEROL SULF 2.5 MG/0.5ML(0.5%) NEB SOLN NEB SCH ×4 (06:57→18:56)
[2017-03-23] MEDS: IPRATROPIUM BROM 0.5 MG/2.5ML INH SOL NEB SCH ×4 (06:57→18:56)
[2017-03-23 07:08] LABS: BUN/Creatinine Ratio 23.6; Calcium 8.6 mg/dL (8.5-10.1)
[2017-03-23 07:10] LABS: Potassium 2.9 mmol/L (3.5-5.1)
[2017-03-23] MEDS ORDERED: POTASSIUM CHL 20 Meq TABLET PO ONE ×2 (07:15→10:00)
[2017-03-23] MEDS: BOOST PLUS 8 ounce PO SCH ×3 (08:11→18:00)
[2017-03-23] MEDS: HYDROcodone-ACET 5/325MG TAB PO PRN ×3 (08:17→22:02)
[2017-03-23] MEDS: cefTRIAXone 1GM/50ML D5W 50 ML IV SCH ×2 (09:40→20:54)
[2017-03-23] MEDS: NICOTINE 14 MG/24HR TOPICAL PATCH TD SCH (09:50)
[2017-03-23] MEDS: ENOXAPARIN SOD 40 MG/0.4 ML SYRINGE SC SCH (09:50)
[2017-03-23] MEDS: ASPirin-EC 81 mg tab PO SCH (09:50)
[2017-03-23] MEDS: CARVEDILOL 3.125 MG TAB PO SCH ×2 (09:51→22:06)
[2017-03-23] MEDS ORDERED: POTASSIUM CHL 20 Meq TABLET PO SCH (10:00)
[2017-03-23] MEDS: FUROSEMIDE 20 MG TAB PO SCH (10:41)
[2017-03-23 22:00] VITALS: BP 115/65
[2017-03-23 22:34] VITALS: BP 115/65
[2017-03-24] MEDS: IPRATROPIUM BROM 0.5 MG/2.5ML INH SOL NEB SCH ×3 (00:44→11:37)
[2017-03-24] MEDS: ALBUTEROL SULF 2.5 MG/0.5ML(0.5%) NEB SOLN NEB SCH ×3 (00:45→11:37)
[2017-03-24 05:00] VITALS: BP 143/83
[2017-03-24 07:11] LABS: Calcium 8.5 mg/dL (8.5-10.1); Potassium 3.1 mmol/L (3.5-5.1)
[2017-03-24 07:18] LABS: BUN/Creatinine Ratio 22.6
[2017-03-24] MEDS ORDERED: LEVO-28 PO (09:08)
[2017-03-24] MEDS ORDERED: VALS40TA2 PO (09:08)
[2017-03-24] MEDS: BOOST PLUS 8 ounce PO SCH ×2 (09:15→11:38)
[2017-03-24] MEDS ORDERED: POTASSIUM CHL 20 Meq TABLET PO SCH (10:00)
[2017-03-24] MEDS: cefTRIAXone 1GM/50ML D5W 50 ML IV SCH (10:08)
[2017-03-24] MEDS: CARVEDILOL 3.125 MG TAB PO SCH (10:09)
[2017-03-24] MEDS: ENOXAPARIN SOD 40 MG/0.4 ML SYRINGE SC SCH (10:10)
[2017-03-24] MEDS: NICOTINE 14 MG/24HR TOPICAL PATCH TD SCH (10:10)
[2017-03-24] MEDS: FUROSEMIDE 20 MG TAB PO SCH (10:10)
[2017-03-24] MEDS: ASPirin-EC 81 mg tab PO SCH (10:10)
[2017-03-24 10:29] VITALS: BP 142/72
[2017-03-24 12:58] VITALS: BP 138/62
[2017-03-24] MEDS: HYDROcodone-ACET 5/325MG TAB PO PRN (13:51)
== END 2017-03-24 15:46 | disposition home health service (06) | DRG 871 ==
LOC: ER 12:11 → TELE 12:12 → ICU WEST 17:35 → CENTRAL 03-21 22:50 → TELE-CENTR 03-21 22:55
PROVIDERS: ADMIT Internal Medicine; ATTEND Internal Medicine
DX: A41.51 Sepsis due to Escherichia coli [E. coli] (principal); R65.21 Severe sepsis with septic shock; N17.0 Acute kidney failure with tubular necrosis; J96.10 Chronic respiratory failure, unspecified whether with hypoxia or hypercapnia; I50.42 Chronic combined systolic (congestive) and diastolic (congestive) heart failure; N12 Tubulo-interstitial nephritis, not specified as acute or chronic; E44.1 Mild protein-calorie malnutrition; F17.210 Nicotine dependence, cigarettes, uncomplicated; E78.5 Hyperlipidemia, unspecified; I11.0 Hypertensive heart disease with heart failure; R73.9 Hyperglycemia, unspecified; J44.9 Chronic obstructive pulmonary disease, unspecified; Z99.81 Dependence on supplemental oxygen; Z90.710 Acquired absence of both cervix and uterus; Z90.49 Acquired absence of other specified parts of digestive tract; Z81.1 Family history of alcohol abuse and dependence; Z80.0 Family history of malignant neoplasm of digestive organs; Z83.6 Family history of other diseases of the respiratory system; Z82.61 Family history of arthritis; Z81.8 Family history of other mental and behavioral disorders; Z82.49 Family history of ischemic heart disease and other diseases of the circulatory system; Z83.3 Family history of diabetes mellitus; Z80.3 Family history of malignant neoplasm of breast; Z82.3 Family history of stroke; Z84.89 Family history of other specified conditions; Z68.23 Body mass index [BMI] 23.0-23.9, adult
CPT/HCPCS: 36415; 51702; 70450; 71010; 74176; 76775; 80048; 80053; 80202; 81001; 82150; 82947; 82962; 83036; 83605; 83690; 83735; 83880; 84132; 84484; 85007; 85025; 85027; 85610; 85730; 87040; 87077; 87081; 87086; 87088; 87186; 93005; 94640; 96361; 96365; 96367; 96375; 99291; J0696; J1885; J2543; J3490

== ENCOUNTER → 2017-10-02 | Outpatient (CLI) | payer MEDICARE ==
[~2017-10-02] MED LIST changes: +ALBU18 IN; +ATOR10TA52 PO; +CARV6.2551 PO; +FURO40TA4 PO; +LEVO-28 PO; +POTA20TA53 PO; +VALS40TA2 PO
[2017-10-02 11:58] LABS: Cholesterol 143 mg/dL (< 200); HDL Cholesterol 36 mg/dL (40-59); LDL Cholesterol 91 mg/dL (< 100); Triglycerides 160 mg/dL (< 150)
== END | disposition home or self-care (01) ==
LOC: LAB 10:24
PROVIDERS: ATTEND Internal Medicine
DX: I47.1 Supraventricular tachycardia (principal); I11.0 Hypertensive heart disease with heart failure; I50.32 Chronic diastolic (congestive) heart failure; I25.10 Atherosclerotic heart disease of native coronary artery without angina pectoris; J44.9 Chronic obstructive pulmonary disease, unspecified; E78.5 Hyperlipidemia, unspecified; F17.210 Nicotine dependence, cigarettes, uncomplicated
CPT/HCPCS: 36415; 80061

== ENCOUNTER → 2018-05-09 | Outpatient (CLI) | payer MEDICARE | END | disposition home or self-care (01) | LOC: XYW 07:20 | PROVIDERS: ATTEND Internal Medicine | DX: R06.02 Shortness of breath (principal); I11.0 Hypertensive heart disease with heart failure; I50.9 Heart failure, unspecified; J44.9 Chronic obstructive pulmonary disease, unspecified | CPT/HCPCS: 93306 ==

== ENCOUNTER → 2018-05-10 | Outpatient (CLI) | payer MEDICARE ==
[~2018-05-10] VITALS: Ht 128 cm; Wt 69.9 kg
[~2018-05-10] MED LIST changes: +ADENOSINE 59 MG in GIVE UN-DILUTED 0 ML IV ONE
[2018-05-10 09:16] VITALS: BP 111/75
== END | disposition home or self-care (01) ==
LOC: XY 07:33
PROVIDERS: ATTEND Internal Medicine
DX: R06.02 Shortness of breath (principal)
CPT/HCPCS: 78452; 93017; A9500; J0153

== ENCOUNTER → 2018-10-10 | Outpatient (CLI) | payer MEDICARE ==
[~2018-10-10] MED LIST changes: -ADENOSINE 59 MG in GIVE UN-DILUTED 0 ML IV ONE
[2018-10-10 09:19] LABS: Basophils # (auto) 0.1 uL; Basophils % (auto) 0.7 % (0.0-2.0); Eosinophils # (auto) 0.5 uL; Eosinophils % (auto) 6.8 % (0.0-7.0); Hematocrit 41.3 % (36.0-46.0); Hemoglobin 13.9 g/dL (12.2-16.2); Lymphocytes # (auto) 1.9 uL; Lymphocytes % (auto) 25.1 % (10.0-50.0); Mean Corpuscular Hemoglobin 30.9 pg (28.0-32.0); Mean Corpuscular Hgb Conc. 33.6 g/dL (32.0-36.0); Mean Corpuscular Volume 91.9 fL (80.0-100.0); Monocytes # (auto) 0.7 uL; Monocytes % (auto) 9.2 % (0.0-12.0); Neutrophils # (auto) 4.5 uL; Neutrophils % (auto) 58.2 % (37.0-80.0); Platelet Count (auto) 210 10^3/uL (140-450); Red Blood Cells 4.49 10^6/uL (4.0-5.20); Red Cell Distribution Width 13.7 % (11.8-14.3); White Blood Cell 7.8 10^3/uL (4.4-10.8)
[2018-10-10 09:54] LABS: Albumin 3.8 g/dL (3.4-5.0); Calcium 8.9 mg/dL (8.5-10.1); Potassium 4.1 mmol/L (3.5-5.1)
[2018-10-10 10:00] LABS: BUN/Creatinine Ratio 17.8; Bilirubin, Total 0.3 mg/dL (0.2-1.0); Total Protein 8.1 g/dL (6.4-8.2)
== END | disposition home or self-care (01) ==
LOC: LAB 08:52
PROVIDERS: ATTEND Physician Assistant
DX: E78.5 Hyperlipidemia, unspecified (principal); I13.0 Hypertensive heart and chronic kidney disease with heart failure and stage 1 through stage 4 chronic kidney disease, or unspecified chronic kidney disease; I50.9 Heart failure, unspecified; N18.2 Chronic kidney disease, stage 2 (mild); J44.9 Chronic obstructive pulmonary disease, unspecified
CPT/HCPCS: 36415; 80053; 80061; 85025

== ENCOUNTER → 2019-10-28 | Outpatient (CLI) | payer MEDICARE ==
[~2019-10-28] MED LIST changes: +POTA-220 PO; -POTA20TA53 PO
[2019-10-28 09:13] LABS: Basophils # (auto) 0.1 10 ^3/uL (0-0.2); Basophils % (auto) 1.1 % (0.0-2.0); Eosinophils # (auto) 0.6 10 ^3/uL (0-0.8); Hematocrit 41.9 % (36.0-46.0); Hemoglobin 13.7 g/dL (12.2-16.2); Lymphocytes # (auto) 2.2 10 ^3/uL (0.4-5.4); Lymphocytes % (auto) 23.3 % (10.0-50.0); Mean Corpuscular Hemoglobin 30.2 pg (28.0-32.0); Mean Corpuscular Hgb Conc. 32.6 g/dL (32.0-36.0); Mean Corpuscular Volume 92.4 fL (80.0-100.0); Monocytes # (auto) 0.7 10 ^3/uL (0-1.3); Monocytes % (auto) 7.6 % (0.0-12.0); Neutrophils # (auto) 5.9 10 ^3/uL (1.6-8.6); Nucleated Red Blood Cells % 0.1 %; Platelet Count (auto) 204 10^3/uL (140-450); Red Blood Cells 4.54 10^6/uL (4.0-5.20); Red Cell Distribution Width 14.2 % (11.8-14.3); White Blood Cell 9.4 10^3/uL (4.4-10.8)
[2019-10-28 10:08] LABS: Potassium 5.1 mmol/L (3.5-5.1)
[2019-10-28 10:21] LABS: Albumin 4.1 g/dL (3.4-5.0); BUN/Creatinine Ratio 24.1; Bilirubin, Total 0.4 mg/dL (0.2-1.0); Calcium 9.4 mg/dL (8.5-10.1); Total Protein 8.4 g/dL (6.4-8.2)
== END | disposition home or self-care (01) ==
LOC: LAB 08:52
PROVIDERS: ATTEND Physician Assistant
DX: I12.9 Hypertensive chronic kidney disease with stage 1 through stage 4 chronic kidney disease, or unspecified chronic kidney disease (principal); N18.2 Chronic kidney disease, stage 2 (mild); J44.9 Chronic obstructive pulmonary disease, unspecified; E78.5 Hyperlipidemia, unspecified
CPT/HCPCS: 36415; 80053; 80061; 85025

== ENCOUNTER 2020-02-19 09:08 | Day surgery (SDC) | payer MEDICARE, MEDICAID ==
[2020-02-13 09:21] LABS: Basophils # (auto) 0.1 10 ^3/uL (0-0.2); Basophils % (auto) 1.2 % (0.0-2.0); Eosinophils # (auto) 0.6 10 ^3/uL (0-0.8); Eosinophils % (auto) 8.7 % (0.0-7.0); Hematocrit 38.6 % (36.0-46.0); Hemoglobin 12.7 g/dL (12.2-16.2); Lymphocytes # (auto) 1.9 10 ^3/uL (0.4-5.4); Lymphocytes % (auto) 28.1 % (10.0-50.0); Mean Corpuscular Hemoglobin 30.2 pg (28.0-32.0); Mean Corpuscular Hgb Conc. 32.8 g/dL (32.0-36.0); Monocytes # (auto) 0.6 10 ^3/uL (0-1.3); Monocytes % (auto) 8.9 % (0.0-12.0); Neutrophils # (auto) 3.6 10 ^3/uL (1.6-8.6); Neutrophils % (auto) 53.1 % (37.0-80.0); Platelet Count (auto) 178 10^3/uL (140-450); Red Cell Distribution Width 14.1 % (11.8-14.3); White Blood Cell 6.7 10^3/uL (4.4-10.8)
[2020-02-13 09:39] LABS: INR 0.97 (0.9-1.15); Partial Thromboplastin Time 25.5 sec (23.0-31.2)
[2020-02-13 09:47] LABS: Calcium 9.1 mg/dL (8.5-10.1); Potassium 4.6 mmol/L (3.5-5.1)
[2020-02-13 09:52] LABS: Albumin 3.8 g/dL (3.4-5.0); BUN/Creatinine Ratio 19.2; Bilirubin, Total 0.4 mg/dL (0.2-1.0); Total Protein 7.8 g/dL (6.4-8.2)
[~2020-02-19] VITALS: Ht 154.9 cm; Wt 58.1 kg
[~2020-02-19 09:08] MED LIST changes: +ATO40T PO; -ATOR10TA52 PO; +FLUT1AER3 IN; +HYDR-4833 PO; -LEVO-28 PO; -VALS40TA2 PO
[2020-02-19] MEDS ORDERED: LIDOCAINE 2%HCL (LOCAL ANESTH.) INJ 20ML MDV ONE (10:50)
[2020-02-19] MEDS ORDERED: IODIXANOL 320MG/ML 100ML BTL IV ONE (10:50)
[2020-02-19] MEDS ORDERED: SODIUM CHL 0.9% 0 ML ONE (10:52)
[2020-02-19] MEDS ORDERED: ANGIOMAX 250 MG VIAL IV ONE (10:52)
[2020-02-19] MEDS ORDERED: MIDAZOLAM HCL 1MG/1ML-2 ML VIAL ONE (10:52)
[2020-02-19] MEDS ORDERED: fentaNYL CITRATE 100 MCG/2 ML VL ONE (10:52)
[2020-02-19] MEDS ORDERED: VERAPAMIL 2.5MG/ML INJ 2ML VIAL IV ONE (10:54)
[2020-02-19] MEDS ORDERED: HEPARIN SODIUM (PORCINE) 5000 UNITS/ML 1ML VIAL ONE (10:54)
[2020-02-19] MEDS ORDERED: NITROGLYCERIN 5MG/ML 10ML VIAL IV ONE (11:00)
[2020-02-19] MEDS ORDERED: HYDROcodone-ACET 5/325MG TAB PO PRN (11:45)
[2020-02-19] MEDS ORDERED: ACETAMINOPHEN 500 MG TAB PO PRN (11:45)
[2020-02-19] MEDS ORDERED: ONDANSETRON HCL 4 MG/2 ML VIAL IV PRN (11:45)
== END 2020-02-19 14:36 | disposition home or self-care (01) ==
LOC: CATH 09:08
PROVIDERS: ATTEND Internal Medicine
DX: R06.02 Shortness of breath (principal); E78.5 Hyperlipidemia, unspecified; J44.9 Chronic obstructive pulmonary disease, unspecified; F17.210 Nicotine dependence, cigarettes, uncomplicated; I11.0 Hypertensive heart disease with heart failure; E78.00 Pure hypercholesterolemia, unspecified; Z79.82 Long term (current) use of aspirin; Z79.899 Other long term (current) drug therapy; Z20.828 Contact with and (suspected) exposure to other viral communicable diseases
CPT/HCPCS: 36415; 80053; 85025; 85610; 85730; 93458; C1769; C1887; C1894; J1644; J2250; J3010; Q9967; U0003; 99152; J3490

== ENCOUNTER 2020-06-20 10:32 | Emergency (ER) | payer MEDICARE, MEDICAID ==
[~2020-06-20] VITALS: Ht 154.9 cm; Wt 56.7 kg
[2020-06-20] MEDS ORDERED: ASPirin 81 mg TAB PO ONE (10:45)
[2020-06-20] MEDS ORDERED: FUROSEMIDE 20 MG/2 ML VIAL IV ONE (10:45)
[2020-06-20 11:25] LABS: Basophils # (auto) 0.1 10 ^3/uL (0-0.2); Basophils % (auto) 1.1 % (0.0-2.0); Eosinophils # (auto) 0.4 10 ^3/uL (0-0.8); Eosinophils % (auto) 5.3 % (0.0-7.0); Hematocrit 39.2 % (36.0-46.0); Lymphocytes # (auto) 1.9 10 ^3/uL (0.4-5.4); Lymphocytes % (auto) 24.7 % (10.0-50.0); Mean Corpuscular Hemoglobin 30.6 pg (28.0-32.0); Mean Corpuscular Hgb Conc. 33.2 g/dL (32.0-36.0); Mean Corpuscular Volume 92.1 fL (80.0-100.0); Monocytes # (auto) 0.8 10 ^3/uL (0-1.3); Monocytes % (auto) 9.8 % (0.0-12.0); Neutrophils # (auto) 4.6 10 ^3/uL (1.6-8.6); Neutrophils % (auto) 59.1 % (37.0-80.0); Platelet Count (auto) 212 10^3/uL (140-450); Red Blood Cells 4.26 10^6/uL (4.0-5.20); Red Cell Distribution Width 13.7 % (11.8-14.3); White Blood Cell 7.7 10^3/uL (4.4-10.8)
[2020-06-20 11:34] LABS: Albumin 3.6 g/dL (3.4-5.0); Anion Gap 5 (5-15); Blood Urea Nitrogen 20 mg/dL (7-18); Calcium 8.9 mg/dL (8.5-10.1); Carbon Dioxide 27 mmol/L (21-32); Chloride 106 mmol/L (98-107); Glucose 165 mg/dL (74-106); Potassium 3.6 mmol/L (3.5-5.1); Sodium 138 mmol/L (136-145)
[2020-06-20 11:43] LABS: Alanine Aminotransferase 21 U/L (13-56); Alkaline Phosphatase 97 U/L (45-117); Aspartate Aminotransferase 14 U/L (15-37); BUN/Creatinine Ratio 16.9; Bilirubin, Total 0.2 mg/dL (0.2-1.0); GFR African American 57 mL/min; GFR Non-African American 47 mL/min; Total Protein 7.9 g/dL (6.4-8.2)
[2020-06-20 12:18] LABS: INR 0.97 (0.9-1.15); Partial Thromboplastin Time 26.9 sec (23.0-31.2)
[2020-06-20 13:48] VITALS: BP 107/58
== END 2020-06-20 13:55 | disposition home or self-care (01) ==
LOC: ER 10:32
DX: I11.0 Hypertensive heart disease with heart failure (principal); I50.9 Heart failure, unspecified; J44.9 Chronic obstructive pulmonary disease, unspecified; E78.5 Hyperlipidemia, unspecified; F17.210 Nicotine dependence, cigarettes, uncomplicated; Z90.710 Acquired absence of both cervix and uterus; Z20.822 Contact with and (suspected) exposure to COVID-19
CPT/HCPCS: 36415; 71045; 80053; 83880; 84484; 85025; 85610; 85730; 87426; 93005; 99285; J1940

== ENCOUNTER → 2020-09-03 | Outpatient (CLI) | payer MEDICARE, MEDICAID | END | disposition home or self-care (01) | LOC: XY 08:55 | PROVIDERS: ATTEND Internal Medicine | DX: I65.23 Occlusion and stenosis of bilateral carotid arteries (principal); R42 Dizziness and giddiness | CPT/HCPCS: 93886 ==

== ENCOUNTER 2020-09-08 12:59 | Inpatient (IN) | payer MEDICARE, MEDICAID ==
[~2020-09-08] VITALS: Ht 152.4 cm; Wt 61.1 kg
[2020-09-08 13:46] LABS: Basophils # (auto) 0.1 10 ^3/uL (0-0.2); Basophils % (auto) 0.6 % (0.0-2.0); Eosinophils # (auto) 0.2 10 ^3/uL (0-0.8); Eosinophils % (auto) 1.4 % (0.0-7.0); Hematocrit 37.4 % (36.0-46.0); Hemoglobin 12.3 g/dL (12.2-16.2); Lymphocytes # (auto) 0.8 10 ^3/uL (0.4-5.4); Lymphocytes % (auto) 4.9 % (10.0-50.0); Mean Corpuscular Hgb Conc. 32.7 g/dL (32.0-36.0); Mean Corpuscular Volume 91.5 fL (80.0-100.0); Monocytes # (auto) 1.2 10 ^3/uL (0-1.3); Monocytes % (auto) 7.4 % (0.0-12.0); Neutrophils # (auto) 14.6 10 ^3/uL (1.6-8.6); Neutrophils % (auto) 85.7 % (37.0-80.0); Platelet Count (auto) 179 10^3/uL (140-450); Red Blood Cells 4.09 10^6/uL (4.0-5.20); Red Cell Distribution Width 14.2 % (11.8-14.3)
[2020-09-08 14:03] LABS: INR 0.95 (0.9-1.15); Partial Thromboplastin Time 26.3 sec (23.0-31.2)
[2020-09-08 14:04] LABS: Albumin 3.8 g/dL (3.4-5.0); Anion Gap 8 (5-15); Blood Urea Nitrogen 24 mg/dL (7-18); Calcium 9.3 mg/dL (8.5-10.1); Carbon Dioxide 27 mmol/L (21-32); Chloride 104 mmol/L (98-107); Glucose 119 mg/dL (74-106); Magnesium 2.5 mg/dL (1.6-2.6); Potassium 4.2 mmol/L (3.5-5.1); Sodium 139 mmol/L (136-145)
[2020-09-08 14:10] LABS: Alanine Aminotransferase 29 U/L (13-56); Alkaline Phosphatase 90 U/L (45-117); Aspartate Aminotransferase 18 U/L (15-37); BUN/Creatinine Ratio 24.7; Bilirubin, Total 0.3 mg/dL (0.2-1.0); GFR African American 72 mL/min; GFR Non-African American 59 mL/min; Total Protein 8.1 g/dL (6.4-8.2)
[2020-09-08] MEDS ORDERED: AZITHROMYCIN 500MG/ 250ML 250 ML IV ONE (14:45)
[2020-09-08] MEDS ORDERED: cefTRIAXone 1GM/50ML D5W 50 ML IV ONE (14:45)
[2020-09-08] MEDS ORDERED: ACETAMINOPHEN 500 MG TAB PO ONE (15:15)
[2020-09-08] MEDS ORDERED: SODIUM CHLORIDE 0.9% 1,000 ML IV ONE ×2 (15:45→17:30)
[2020-09-08] MEDS ORDERED: MELA3TAB27 PO (17:13)
[2020-09-08] MEDS ORDERED: ESCI20TA PO (17:13)
[2020-09-08] MEDS ORDERED: MIRT1TAB38 PO (17:14)
[2020-09-08] MEDS ORDERED: NITROGLYCERIN 0.4 MG SL TAB SL PRN (17:30)
[2020-09-08] MEDS ORDERED: MORPHINE SULF INJ 2 MG/ML SYRINGE 1ML IV PRN (17:30)
[2020-09-08] MEDS: HYDROcodone-ACET 5/325MG TAB PO PRN (19:27)
[2020-09-08] MEDS: IPRATROPIUM BROM 0.5 MG/2.5ML INH SOL NEB SCH (19:43)
[2020-09-08] MEDS: ALBUTEROL SULF 2.5 MG/0.5ML(0.5%) NEB SOLN NEB SCH (19:43)
[2020-09-08] MEDS: MORPHINE SULF INJ 2 MG/ML SYRINGE 1ML IV PRN (21:16)
[2020-09-08] MEDS: CARVEDILOL 3.125 MG TAB PO SCH (22:00)
[2020-09-08] MEDS: ATORVASTATIN 20 MG TAB PO SCH (22:00)
[2020-09-08] MEDS: ONDANSETRON HCL 4 MG/2 ML VIAL IV PRN (22:21)
[2020-09-08 23:20] VITALS: BP 128/67
[2020-09-09] VITALS (7 sets, daily range): BP systolic 103–128; BP diastolic 54–102
[2020-09-09] MEDS: MORPHINE SULF INJ 2 MG/ML SYRINGE 1ML IV PRN ×2 (03:18→08:53)
[2020-09-09 06:12] LABS: Basophils # (auto) 0.1 10 ^3/uL (0-0.2); Basophils % (auto) 0.3 % (0.0-2.0); Eosinophils # (auto) 0 10 ^3/uL (0-0.8); Eosinophils % (auto) 0.1 % (0.0-7.0); Hematocrit 31.8 % (36.0-46.0); Hemoglobin 10.5 g/dL (12.2-16.2); Lymphocytes # (auto) 1.1 10 ^3/uL (0.4-5.4); Lymphocytes % (auto) 6.4 % (10.0-50.0); Mean Corpuscular Hemoglobin 30.1 pg (28.0-32.0); Mean Corpuscular Volume 91.2 fL (80.0-100.0); Monocytes # (auto) 1.3 10 ^3/uL (0-1.3); Monocytes % (auto) 7.6 % (0.0-12.0); Neutrophils # (auto) 14.7 10 ^3/uL (1.6-8.6); Neutrophils % (auto) 85.6 % (37.0-80.0); Platelet Count (auto) 151 10^3/uL (140-450); Red Blood Cells 3.49 10^6/uL (4.0-5.20); Red Cell Distribution Width 14.2 % (11.8-14.3); White Blood Cell 17.2 10^3/uL (4.4-10.8)
[2020-09-09 06:35] LABS: Potassium 3.6 mmol/L (3.5-5.1)
[2020-09-09 06:41] LABS: Calcium 7.8 mg/dL (8.5-10.1)
[2020-09-09] MEDS: IPRATROPIUM BROM 0.5 MG/2.5ML INH SOL NEB SCH ×3 (06:53→20:05)
[2020-09-09] MEDS: ALBUTEROL SULF 2.5 MG/0.5ML(0.5%) NEB SOLN NEB SCH ×3 (06:53→20:05)
[2020-09-09] MEDS: cefTRIAXone 1GM/50ML D5W 50 ML IV SCH (08:53)
[2020-09-09] MEDS: AZITHROMYCIN 500MG/ 250ML 250 ML IV SCH (10:57)
[2020-09-09] MEDS: ASPirin-EC 81 mg tab PO SCH (10:58)
[2020-09-09] MEDS: CARVEDILOL 3.125 MG TAB PO SCH ×2 (10:59→21:36)
[2020-09-09] MEDS: FAMOTIDINE 20 MG TAB PO SCH ×2 (11:11→20:50)
[2020-09-09] MEDS ORDERED: IOHEXOL 350 MG/ML 100ML IJ ONE (14:43)
[2020-09-09] MEDS ORDERED: ALBUTEROL SULF 2.5 MG/0.5ML(0.5%) NEB SOLN NEB PRN (14:45)
[2020-09-09] MEDS ORDERED: IPRATROPIUM BROM 0.5 MG/2.5ML INH SOL NEB PRN (14:45)
[2020-09-09] MEDS: HYDROcodone-ACET 5/325MG TAB PO PRN ×2 (15:24→20:50)
[2020-09-09 18:34] LABS: Urine Bacteria NONE SEEN /hpf (None Seen); Urine Blood 1+ /uL (Negative); Urine Specific Gravity > 1.050 (1.001-1.035); Urine WBC 9 /hpf (0 - 5)
[2020-09-09] MEDS: ATORVASTATIN 20 MG TAB PO SCH (20:50)
[2020-09-09] MEDS: BUDESONIDE (INHALATION) 0.5 MG/2 ML NEB NEB SCH (23:07)
[2020-09-10] MEDS: ACETAMINOPHEN 500 MG TAB PO PRN ×2 (01:26→03:38)
[2020-09-10 05:00] VITALS: BP 124/60
[2020-09-10] MEDS: HYDROcodone-ACET 5/325MG TAB PO PRN ×3 (05:57→18:10)
[2020-09-10 06:30] LABS: Basophils # (auto) 0.1 10 ^3/uL (0-0.2); Basophils % (auto) 0.4 % (0.0-2.0); Eosinophils # (auto) 0.1 10 ^3/uL (0-0.8); Eosinophils % (auto) 1.1 % (0.0-7.0); Hematocrit 30.6 % (36.0-46.0); Hemoglobin 10.3 g/dL (12.2-16.2); Lymphocytes % (auto) 7.8 % (10.0-50.0); Mean Corpuscular Hemoglobin 30.8 pg (28.0-32.0); Mean Corpuscular Hgb Conc. 33.8 g/dL (32.0-36.0); Mean Corpuscular Volume 91.4 fL (80.0-100.0); Monocytes # (auto) 1.3 10 ^3/uL (0-1.3); Monocytes % (auto) 10.4 % (0.0-12.0); Neutrophils # (auto) 9.9 10 ^3/uL (1.6-8.6); Neutrophils % (auto) 80.3 % (37.0-80.0); Platelet Count (auto) 149 10^3/uL (140-450); Red Blood Cells 3.35 10^6/uL (4.0-5.20); Red Cell Distribution Width 13.9 % (11.8-14.3); White Blood Cell 12.3 10^3/uL (4.4-10.8)
[2020-09-10 06:48] LABS: Potassium 3.8 mmol/L (3.5-5.1)
[2020-09-10 07:00] LABS: Albumin 2.9 g/dL (3.4-5.0); Bilirubin, Total 0.4 mg/dL (0.2-1.0); Calcium 8.8 mg/dL (8.5-10.1); Magnesium 2.3 mg/dL (1.6-2.6); Total Protein 6.3 g/dL (6.4-8.2)
[2020-09-10] MEDS: IPRATROPIUM BROM 0.5 MG/2.5ML INH SOL NEB SCH ×3 (07:38→19:45)
[2020-09-10] MEDS: ALBUTEROL SULF 2.5 MG/0.5ML(0.5%) NEB SOLN NEB SCH ×3 (07:38→19:46)
[2020-09-10] MEDS: BUDESONIDE (INHALATION) 0.5 MG/2 ML NEB NEB SCH ×2 (07:38→23:18)
[2020-09-10 09:32] VITALS: BP 117/64
[2020-09-10] MEDS: ASPirin-EC 81 mg tab PO SCH (09:56)
[2020-09-10] MEDS: AZITHROMYCIN 500MG/ 250ML 250 ML IV SCH (09:57)
[2020-09-10] MEDS: CARVEDILOL 3.125 MG TAB PO SCH ×2 (09:57→21:40)
[2020-09-10] MEDS: cefTRIAXone 1GM/50ML D5W 50 ML IV SCH (09:57)
[2020-09-10 12:32] VITALS: BP 108/92
[2020-09-10 16:51] VITALS: BP 124/74
[2020-09-10] MEDS: ATORVASTATIN 20 MG TAB PO SCH (21:18)
[2020-09-10] MEDS: FAMOTIDINE 20 MG TAB PO SCH (21:19)
[2020-09-10 22:00] VITALS: BP 136/66
[2020-09-11] MEDS: HYDROcodone-ACET 5/325MG TAB PO PRN ×2 (01:45→09:20)
[2020-09-11 05:00] VITALS: BP 141/65
[2020-09-11] MEDS: BUDESONIDE (INHALATION) 0.5 MG/2 ML NEB NEB SCH (06:01)
[2020-09-11] MEDS: ALBUTEROL SULF 2.5 MG/0.5ML(0.5%) NEB SOLN NEB SCH ×2 (06:01→11:39)
[2020-09-11] MEDS: IPRATROPIUM BROM 0.5 MG/2.5ML INH SOL NEB SCH ×2 (06:01→11:39)
[2020-09-11 06:34] LABS: Basophils # (auto) 0 10 ^3/uL (0-0.2); Basophils % (auto) 0.5 % (0.0-2.0); Eosinophils # (auto) 0.3 10 ^3/uL (0-0.8); Eosinophils % (auto) 3.4 % (0.0-7.0); Hematocrit 31.4 % (36.0-46.0); Hemoglobin 10.7 g/dL (12.2-16.2); Lymphocytes # (auto) 1.4 10 ^3/uL (0.4-5.4); Lymphocytes % (auto) 17.9 % (10.0-50.0); Mean Corpuscular Hemoglobin 31.1 pg (28.0-32.0); Mean Corpuscular Hgb Conc. 34.2 g/dL (32.0-36.0); Mean Corpuscular Volume 90.8 fL (80.0-100.0); Monocytes # (auto) 1.2 10 ^3/uL (0-1.3); Monocytes % (auto) 14.8 % (0.0-12.0); Neutrophils # (auto) 4.9 10 ^3/uL (1.6-8.6); Neutrophils % (auto) 63.4 % (37.0-80.0); Platelet Count (auto) 163 10^3/uL (140-450); Red Blood Cells 3.46 10^6/uL (4.0-5.20); Red Cell Distribution Width 13.8 % (11.8-14.3); White Blood Cell 7.7 10^3/uL (4.4-10.8)
[2020-09-11] MEDS: ACETAMINOPHEN 500 MG TAB PO PRN (06:55)
[2020-09-11 07:10] LABS: BUN/Creatinine Ratio 19.2; Calcium 8.4 mg/dL (8.5-10.1); Magnesium 2.2 mg/dL (1.6-2.6); Potassium 3.6 mmol/L (3.5-5.1)
[2020-09-11 09:10] VITALS: BP 136/71
[2020-09-11] MEDS: CARVEDILOL 3.125 MG TAB PO SCH (09:20)
[2020-09-11] MEDS: ASPirin-EC 81 mg tab PO SCH (09:20)
[2020-09-11] MEDS: cefTRIAXone 1GM/50ML D5W 50 ML IV SCH (09:21)
[2020-09-11] MEDS: AZITHROMYCIN 500MG/ 250ML 250 ML IV SCH (09:27)
[2020-09-11] MEDS: ONDANSETRON HCL 4 MG/2 ML VIAL IV PRN (09:30)
[2020-09-11] MEDS ORDERED: SACC250C PO (09:47)
[2020-09-11] MEDS ORDERED: DOXY-286 PO (09:47)
[2020-09-11 11:49] VITALS: BP 103/59
[2020-09-11 13:00] VITALS: BP 103/59
== END 2020-09-11 15:13 | disposition home health service (06) | DRG 871 ==
LOC: ER 12:59 → TELE 13:00 → TELE-WESTW 23:20
PROVIDERS: ADMIT Nurse Practitioner Acute Care; ATTEND Internal Medicine
DX: A41.9 Sepsis, unspecified organism (principal); J18.9 Pneumonia, unspecified organism; J96.21 Acute and chronic respiratory failure with hypoxia; G93.41 Metabolic encephalopathy; I24.9 Acute ischemic heart disease, unspecified; I50.22 Chronic systolic (congestive) heart failure; I13.0 Hypertensive heart and chronic kidney disease with heart failure and stage 1 through stage 4 chronic kidney disease, or unspecified chronic kidney disease; J44.0 Chronic obstructive pulmonary disease with (acute) lower respiratory infection; J44.1 Chronic obstructive pulmonary disease with (acute) exacerbation; Z20.822 Contact with and (suspected) exposure to COVID-19; F32.9 Major depressive disorder, single episode, unspecified; N18.31 Chronic kidney disease, stage 3a; R65.20 Severe sepsis without septic shock; F17.210 Nicotine dependence, cigarettes, uncomplicated; R73.03 Prediabetes; Z79.82 Long term (current) use of aspirin; Z79.899 Other long term (current) drug therapy; Z80.0 Family history of malignant neoplasm of digestive organs; Z80.3 Family history of malignant neoplasm of breast; Z81.8 Family history of other mental and behavioral disorders; Z82.3 Family history of stroke; Z82.49 Family history of ischemic heart disease and other diseases of the circulatory system; Z82.5 Family history of asthma and other chronic lower respiratory diseases; Z83.3 Family history of diabetes mellitus; Z90.710 Acquired absence of both cervix and uterus; Z71.6 Tobacco abuse counseling
CPT/HCPCS: 36415; 51702; 70450; 71045; 71275; 80048; 80053; 80061; 81001; 82306; 83036; 83605; 83735; 83880; 84443; 84484; 85025; 85379; 85610; 85730; 87040; 87086; 87426; 87804; 93005; 93306; 94640; 96361; 96365; 96368; 96375; 96376; 97163; G0378; J0696; J2405

== ENCOUNTER 2021-04-11 10:56 | Emergency (ER) | payer MEDICARE, MEDICAID ==
[~2021-04-11] VITALS: Ht 152.4 cm; Wt 54.4 kg
[~2021-04-11 10:56] MED LIST changes: -ASPI-231 PO; +ASPI1TAB20 PO; +DOXY-286 PO; +ESCI20TA PO; +MELA3TAB27 PO; +MIRT1TAB38 PO; +SACC250C PO
[2021-04-11] MEDS ORDERED: SODIUM CHLORIDE 0.9% 500 ML IV ONE (11:30)
[2021-04-11 12:44] LABS: Basophils # (auto) 0.1 10 ^3/uL (0-0.2); Basophils % (auto) 0.8 % (0.0-2.0); Eosinophils # (auto) 0.2 10 ^3/uL (0-0.8); Eosinophils % (auto) 2.6 % (0.0-7.0); Hematocrit 34.8 % (36.0-46.0); Hemoglobin 11.7 g/dL (12.2-16.2); Lymphocytes # (auto) 1.2 10 ^3/uL (0.4-5.4); Mean Corpuscular Hemoglobin 31.3 pg (28.0-32.0); Mean Corpuscular Hgb Conc. 33.7 g/dL (32.0-36.0); Mean Corpuscular Volume 93.1 fL (80.0-100.0); Monocytes % (auto) 13.7 % (0.0-12.0); Neutrophils # (auto) 4.9 10 ^3/uL (1.6-8.6); Neutrophils % (auto) 66.9 % (37.0-80.0); Nucleated Red Blood Cells % 0.2 %; Red Blood Cells 3.74 10^6/uL (4.0-5.20); Red Cell Distribution Width 14.3 % (11.8-14.3); White Blood Cell 7.3 10^3/uL (4.4-10.8)
[2021-04-11 12:55] LABS: Potassium 3.5 mmol/L (3.5-5.1)
[2021-04-11 13:02] LABS: Albumin 2.9 g/dL (3.4-5.0); BUN/Creatinine Ratio 23.3; Bilirubin, Total 0.1 mg/dL (0.2-1.0); Calcium 8.2 mg/dL (8.5-10.1); Total Protein 7.3 g/dL (6.4-8.2)
[2021-04-11 14:00] LABS: Urine Bacteria FEW /hpf (None Seen); Urine Blood Negative /uL (Negative); Urine Hyaline Cast MOD /lpf (0 - 2); Urine Mucus FEW (None Seen); Urine WBC 18 /hpf (0 - 5)
[2021-04-11 14:48] VITALS: BP 110/57
== END 2021-04-11 15:19 | disposition home or self-care (01) ==
LOC: ER 10:56
DX: N39.0 Urinary tract infection, site not specified (principal); R53.1 Weakness; I11.0 Hypertensive heart disease with heart failure; I50.9 Heart failure, unspecified; J44.9 Chronic obstructive pulmonary disease, unspecified; E78.5 Hyperlipidemia, unspecified; Z90.710 Acquired absence of both cervix and uterus
CPT/HCPCS: 36415; 80053; 81001; 83605; 85025; 87040; 93005; 96360; 99284; J7030

== ENCOUNTER → 2021-06-16 | Outpatient (CLI) | payer MEDICARE, MEDICAID ==
[2021-06-16 10:22] LABS: Basophils # (auto) 0.1 10 ^3/uL (0-0.2); Eosinophils # (auto) 0.6 10 ^3/uL (0-0.8); Hematocrit 37.5 % (36.0-46.0); Hemoglobin 12.4 g/dL (12.2-16.2); Lymphocytes % (auto) 22.9 % (10.0-50.0); Mean Corpuscular Hemoglobin 30.1 pg (28.0-32.0); Mean Corpuscular Hgb Conc. 33.2 g/dL (32.0-36.0); Mean Corpuscular Volume 90.6 fL (80.0-100.0); Monocytes # (auto) 0.7 10 ^3/uL (0-1.3); Monocytes % (auto) 8.3 % (0.0-12.0); Neutrophils # (auto) 5.2 10 ^3/uL (1.6-8.6); Neutrophils % (auto) 60.8 % (37.0-80.0); Red Blood Cells 4.13 10^6/uL (4.0-5.20); Red Cell Distribution Width 13.8 % (11.8-14.3); White Blood Cell 8.6 10^3/uL (4.4-10.8)
[2021-06-16 11:07] LABS: Potassium 5.4 mmol/L (3.5-5.1)
[2021-06-16 11:19] LABS: Albumin 3.6 g/dL (3.4-5.0); BUN/Creatinine Ratio 21.7; Bilirubin, Total 0.2 mg/dL (0.2-1.0); Calcium 9.3 mg/dL (8.5-10.1); Total Protein 7.4 g/dL (6.4-8.2)
== END | disposition home or self-care (01) ==
LOC: LAB 09:24
PROVIDERS: ATTEND Nurse Practitioner Family
DX: J44.9 Chronic obstructive pulmonary disease, unspecified (principal); I10 Essential (primary) hypertension; I42.9 Cardiomyopathy, unspecified; R73.9 Hyperglycemia, unspecified; E78.00 Pure hypercholesterolemia, unspecified; N39.0 Urinary tract infection, site not specified
CPT/HCPCS: 36415; 80053; 80061; 83036; 85025; 87086

== ENCOUNTER 2022-06-03 15:03 | Inpatient (IN) | payer MEDICARE, MEDICAID ==
[~2022-06-03] VITALS: Ht 190.5 cm; Wt 56.2 kg
[2022-06-03 16:09] LABS: Basophils # (auto) 0 10 ^3/uL (0-0.2); Basophils % (auto) 0.3 % (0.0-2.0); Eosinophils # (auto) 0.1 10 ^3/uL (0-0.8); Eosinophils % (auto) 0.5 % (0.0-7.0); Hematocrit 34.1 % (36.0-46.0); Hemoglobin 11.4 g/dL (12.2-16.2); Lymphocytes # (auto) 1.4 10 ^3/uL (0.4-5.4); Lymphocytes % (auto) 11.3 % (10.0-50.0); Mean Corpuscular Hemoglobin 30.6 pg (28.0-32.0); Mean Corpuscular Hgb Conc. 33.4 g/dL (32.0-36.0); Mean Corpuscular Volume 91.6 fL (80.0-100.0); Monocytes # (auto) 1.9 10 ^3/uL (0-1.3); Monocytes % (auto) 15.3 % (0.0-12.0); Neutrophils # (auto) 8.8 10 ^3/uL (1.6-8.6); Neutrophils % (auto) 72.6 % (37.0-80.0); Red Blood Cells 3.72 10^6/uL (4.0-5.20); Red Cell Distribution Width 14.1 % (11.8-14.3); White Blood Cell 12.2 10^3/uL (4.4-10.8)
[2022-06-03 16:11] LABS: Albumin 3.1 g/dL (3.4-5.0); BUN/Creatinine Ratio 22.9; Calcium 8.8 mg/dL (8.5-10.1); Potassium 4.3 mmol/L (3.5-5.1)
[2022-06-03 16:14] LABS: Bilirubin, Total 0.3 mg/dL (0.2-1.0); Total Protein 6.9 g/dL (6.4-8.2)
[2022-06-03] MEDS ORDERED: ASPirin 325 MG TAB PO ONE (20:45)
[2022-06-03] MEDS ORDERED: cefTRIAXone 1GM/50ML D5W 50 ML IV ONE (20:45)
[2022-06-03] MEDS ORDERED: ACETAMINOPHEN 325 MG TAB PO ONE (20:45)
[2022-06-03] MEDS ORDERED: NITROGLYCERIN 0.4 MG SL TAB SL PRN (23:00)
[2022-06-03] MEDS ORDERED: MAALOX PLUS or MAALOX 30 ML PO ONE (23:00)
[2022-06-03] MEDS ORDERED: ACETAMINOPHEN 325 MG TAB PO PRN (23:00)
[2022-06-03] MEDS ORDERED: MORPHINE SULFATE 4 MG/ML SYR/VIAL IV PRN (23:00)
[2022-06-03] MEDS ORDERED: ONDANSETRON HCL 4 MG/2 ML VIAL IV PRN (23:00)
[2022-06-04] MEDS: AZITHROMYCIN 500MG/ 250ML 250 ML IV SCH ×2 (00:09→11:56)
[2022-06-04] MEDS: ENOXAPARIN SOD 60 MG/0.6 ML SYRINGE SC SCH ×3 (00:10→22:02)
[2022-06-04] MEDS: CARVEDILOL 3.125 MG TAB PO SCH ×3 (00:17→22:02)
[2022-06-04] MEDS: HYDROcodone-ACET 5/325MG TAB PO PRN ×2 (00:17→23:41)
[2022-06-04] MEDS: guaiFENesin 200 MG/10 ML UD PO PRN ×3 (00:18→21:09)
[2022-06-04 00:24] LABS: Urine Bacteria FEW /hpf (None Seen); Urine Blood Negative /uL (Negative); Urine Specific Gravity 1.022 (1.001-1.035); Urine WBC 2 /hpf (0 - 5)
[2022-06-04 05:27] LABS: Calcium 8.4 mg/dL (8.5-10.1); Potassium 3.6 mmol/L (3.5-5.1)
[2022-06-04 05:29] LABS: Basophils # (auto) 0 10 ^3/uL (0-0.2); Basophils % (auto) 0.3 % (0.0-2.0); Eosinophils # (auto) 0.1 10 ^3/uL (0-0.8); Hematocrit 32.4 % (36.0-46.0); Hemoglobin 10.8 g/dL (12.2-16.2); Lymphocytes # (auto) 1.8 10 ^3/uL (0.4-5.4); Mean Corpuscular Hemoglobin 30.4 pg (28.0-32.0); Mean Corpuscular Hgb Conc. 33.2 g/dL (32.0-36.0); Mean Corpuscular Volume 91.5 fL (80.0-100.0); Monocytes # (auto) 1.7 10 ^3/uL (0-1.3); Monocytes % (auto) 14.5 % (0.0-12.0); Neutrophils # (auto) 8.2 10 ^3/uL (1.6-8.6); Neutrophils % (auto) 69.2 % (37.0-80.0); Nucleated Red Blood Cells % 0.1 %; Red Blood Cells 3.54 10^6/uL (4.0-5.20); Red Cell Distribution Width 14.1 % (11.8-14.3); White Blood Cell 11.9 10^3/uL (4.4-10.8)
[2022-06-04 05:54] VITALS: BP 144/94
[2022-06-04 09:00] VITALS: BP 119/61
[2022-06-04] MEDS ORDERED: METOPROLOL TARTRATE 25 MG TAB PO SCH (10:00)
[2022-06-04] MEDS: ASPirin 81 mg TAB PO SCH (10:14)
[2022-06-04] MEDS: DOCUSATE SOD 100 MG CAP PO SCH (10:14)
[2022-06-04] MEDS: CLOPIDOGREL BISULFATE 75 MG TAB PO SCH (10:15)
[2022-06-04] MEDS: LISINOPRIL 10 MG TAB PO SCH (10:15)
[2022-06-04] MEDS: cefTRIAXone 1GM/50ML D5W 50 ML IV SCH (10:55)
[2022-06-04 13:00] VITALS: BP 125/56
[2022-06-04] MEDS: IPRATROPIUM BROM 0.5 MG/2.5ML INH SOL NEB SCH ×3 (14:08→22:27)
[2022-06-04] MEDS: ALBUTEROL SULF 2.5 MG/0.5ML(0.5%) NEB SOLN NEB SCH ×3 (14:08→22:27)
[2022-06-04] MEDS: methylPREDNISolone SOD SUCC 40 MG/ML VL IV SCH ×2 (14:38→22:02)
[2022-06-04 16:48] VITALS: BP 125/56
[2022-06-04 17:00] VITALS: BP 133/55
[2022-06-04 22:00] VITALS: BP 134/51
[2022-06-04] MEDS: ATORVASTATIN 20 MG TAB PO SCH (22:02)
[2022-06-05 05:00] VITALS: BP 119/60
[2022-06-05] MEDS: guaiFENesin 200 MG/10 ML UD PO PRN ×2 (06:27→22:23)
[2022-06-05] MEDS: methylPREDNISolone SOD SUCC 40 MG/ML VL IV SCH ×3 (06:27→22:21)
[2022-06-05 09:00] VITALS: BP 127/79
[2022-06-05] MEDS: cefTRIAXone 1GM/50ML D5W 50 ML IV SCH (09:08)
[2022-06-05] MEDS: DOCUSATE SOD 100 MG CAP PO SCH (10:00)
[2022-06-05] MEDS: AZITHROMYCIN 500MG/ 250ML 250 ML IV SCH (11:17)
[2022-06-05] MEDS: ASPirin 81 mg TAB PO SCH (11:17)
[2022-06-05] MEDS: CARVEDILOL 3.125 MG TAB PO SCH ×2 (11:19→22:21)
[2022-06-05] MEDS: CLOPIDOGREL BISULFATE 75 MG TAB PO SCH (11:19)
[2022-06-05] MEDS: ENOXAPARIN SOD 60 MG/0.6 ML SYRINGE SC SCH ×2 (11:20→22:22)
[2022-06-05] MEDS: LISINOPRIL 10 MG TAB PO SCH (11:20)
[2022-06-05] MEDS: IPRATROPIUM BROM 0.5 MG/2.5ML INH SOL NEB SCH ×2 (12:10→19:07)
[2022-06-05] MEDS: ALBUTEROL SULF 2.5 MG/0.5ML(0.5%) NEB SOLN NEB SCH ×2 (12:10→19:08)
[2022-06-05 13:00] VITALS: BP 101/57
[2022-06-05] MEDS: HYDROcodone-ACET 5/325MG TAB PO PRN ×2 (14:03→22:23)
[2022-06-05] MEDS: ALPRAZolam 0.5 MG TAB PO PRN (15:17)
[2022-06-05 17:00] VITALS: BP 117/84
[2022-06-05] MEDS ORDERED: IOHEXOL 350 MG/ML 100ML IJ ONE (17:37)
[2022-06-05 22:00] VITALS: BP 136/52
[2022-06-05] MEDS: ATORVASTATIN 20 MG TAB PO SCH (22:22)
[2022-06-05] MEDS: SERTRALINE HCL 50 MG TAB PO SCH (22:22)
[2022-06-06] MEDS: ALPRAZolam 0.5 MG TAB PO PRN (02:38)
[2022-06-06 05:00] VITALS: BP 115/54
[2022-06-06] MEDS: methylPREDNISolone SOD SUCC 40 MG/ML VL IV SCH ×3 (05:39→22:19)
[2022-06-06] MEDS: IPRATROPIUM BROM 0.5 MG/2.5ML INH SOL NEB SCH ×3 (07:29→19:24)
[2022-06-06] MEDS: ALBUTEROL SULF 2.5 MG/0.5ML(0.5%) NEB SOLN NEB SCH ×3 (07:29→19:24)
[2022-06-06 08:27] LABS: Basophils # (auto) 0 10 ^3/uL (0-0.2); Basophils % (auto) 0.1 % (0.0-2.0); Eosinophils # (auto) 0 10 ^3/uL (0-0.8); Hematocrit 31.7 % (36.0-46.0); Hemoglobin 10.3 g/dL (12.2-16.2); Lymphocytes # (auto) 0.9 10 ^3/uL (0.4-5.4); Lymphocytes % (auto) 7.4 % (10.0-50.0); Mean Corpuscular Hemoglobin 29.6 pg (28.0-32.0); Mean Corpuscular Hgb Conc. 32.5 g/dL (32.0-36.0); Monocytes # (auto) 0.7 10 ^3/uL (0-1.3); Neutrophils # (auto) 10.6 10 ^3/uL (1.6-8.6); Neutrophils % (auto) 86.5 % (37.0-80.0); Red Blood Cells 3.48 10^6/uL (4.0-5.20); White Blood Cell 12.3 10^3/uL (4.4-10.8)
[2022-06-06 08:37] LABS: Calcium 8.7 mg/dL (8.5-10.1); Potassium 4.2 mmol/L (3.5-5.1)
[2022-06-06 08:39] LABS: BUN/Creatinine Ratio 38.4
[2022-06-06 09:20] VITALS: BP 136/63
[2022-06-06] MEDS: DOCUSATE SOD 100 MG CAP PO SCH (10:00)
[2022-06-06] MEDS: cefTRIAXone 1GM/50ML D5W 50 ML IV SCH (11:00)
[2022-06-06] MEDS: CARVEDILOL 3.125 MG TAB PO SCH ×2 (11:00→22:20)
[2022-06-06] MEDS: ASPirin 81 mg TAB PO SCH (11:00)
[2022-06-06] MEDS: CLOPIDOGREL BISULFATE 75 MG TAB PO SCH (11:01)
[2022-06-06] MEDS: ENOXAPARIN SOD 60 MG/0.6 ML SYRINGE SC SCH ×2 (11:01→22:19)
[2022-06-06] MEDS: LISINOPRIL 10 MG TAB PO SCH (11:01)
[2022-06-06] MEDS: AZITHROMYCIN 500MG/ 250ML 250 ML IV SCH (12:27)
[2022-06-06 13:24] VITALS: BP 134/50
[2022-06-06] MEDS: guaiFENesin-DM 100/10mg/5ml SYR PO PRN (13:33)
[2022-06-06] MEDS: HYDROcodone-ACET 5/325MG TAB PO PRN ×2 (16:18→22:20)
[2022-06-06 17:01] VITALS: BP 126/89
[2022-06-06 22:00] VITALS: BP 116/39
[2022-06-06] MEDS: ATORVASTATIN 20 MG TAB PO SCH (22:19)
[2022-06-06] MEDS: SERTRALINE HCL 50 MG TAB PO SCH (22:19)
[2022-06-07] VITALS (7 sets, daily range): BP systolic 97–154; BP diastolic 47–58
[2022-06-07] MEDS: methylPREDNISolone SOD SUCC 40 MG/ML VL IV SCH (05:42)
[2022-06-07] MEDS: guaiFENesin-DM 100/10mg/5ml SYR PO PRN ×2 (06:02→22:58)
[2022-06-07] MEDS: IPRATROPIUM BROM 0.5 MG/2.5ML INH SOL NEB SCH ×3 (06:44→19:41)
[2022-06-07] MEDS: ALBUTEROL SULF 2.5 MG/0.5ML(0.5%) NEB SOLN NEB SCH ×3 (06:44→19:41)
[2022-06-07] MEDS: DOCUSATE SOD 100 MG CAP PO SCH (10:00)
[2022-06-07] MEDS: CLOPIDOGREL BISULFATE 75 MG TAB PO SCH (10:06)
[2022-06-07] MEDS: LISINOPRIL 10 MG TAB PO SCH (10:06)
[2022-06-07] MEDS: ASPirin 81 mg TAB PO SCH (10:06)
[2022-06-07] MEDS: AZITHROMYCIN 500MG/ 250ML 250 ML IV SCH (10:07)
[2022-06-07] MEDS: cefTRIAXone 1GM/50ML D5W 50 ML IV SCH (10:07)
[2022-06-07] MEDS: CARVEDILOL 3.125 MG TAB PO SCH ×2 (10:07→21:54)
[2022-06-07] MEDS: ENOXAPARIN SOD 60 MG/0.6 ML SYRINGE SC SCH (10:08)
[2022-06-07] MEDS ORDERED: POTASSIUM CHL 10 Meq TABLET PO ONE (12:45)
[2022-06-07] MEDS ORDERED: FUROSEMIDE 20 MG TAB PO ONE (12:45)
[2022-06-07 14:43] LABS: Hepatitis C Antibody Negative (Negative)
[2022-06-07] MEDS: HYDROcodone-ACET 5/325MG TAB PO PRN (21:54)
[2022-06-07] MEDS: ATORVASTATIN 20 MG TAB PO SCH (21:55)
[2022-06-08 05:00] VITALS: BP 138/61
[2022-06-08] MEDS: ALBUTEROL SULF 2.5 MG/0.5ML(0.5%) NEB SOLN NEB SCH ×3 (06:44→19:35)
[2022-06-08] MEDS: IPRATROPIUM BROM 0.5 MG/2.5ML INH SOL NEB SCH ×3 (06:44→19:35)
[2022-06-08 09:00] VITALS: BP 137/60
[2022-06-08] MEDS: ASPirin 81 mg TAB PO SCH (09:20)
[2022-06-08] MEDS: predniSONE 20 MG TAB PO SCH (09:20)
[2022-06-08] MEDS: CITALOPRAM HYDROBR 20 MG TAB PO SCH (09:20)
[2022-06-08] MEDS: cefTRIAXone 1GM/50ML D5W 50 ML IV SCH (09:20)
[2022-06-08] MEDS: CARVEDILOL 3.125 MG TAB PO SCH ×2 (09:21→21:50)
[2022-06-08] MEDS: DOCUSATE SOD 100 MG CAP PO SCH (09:21)
[2022-06-08] MEDS: FUROSEMIDE 20 MG TAB PO SCH (09:22)
[2022-06-08] MEDS: POTASSIUM CHL 10 Meq TABLET PO SCH (09:22)
[2022-06-08] MEDS: CLOPIDOGREL BISULFATE 75 MG TAB PO SCH (09:22)
[2022-06-08] MEDS: LISINOPRIL 10 MG TAB PO SCH (09:23)
[2022-06-08] MEDS: AZITHROMYCIN 250 MG TAB PO SCH (09:23)
[2022-06-08] MEDS: HYDROcodone-ACET 5/325MG TAB PO PRN (09:26)
[2022-06-08 13:00] VITALS: BP 130/61
[2022-06-08] MEDS ORDERED: ALBUTEROL MEDNEB 2.5 mg/3ml NEB ONE ×2 (13:02→18:23)
[2022-06-08 16:55] VITALS: BP 111/52
[2022-06-08] MEDS: ALPRAZolam 0.5 MG TAB PO PRN (21:01)
[2022-06-08] MEDS: ATORVASTATIN 20 MG TAB PO SCH (21:49)
[2022-06-08 22:00] VITALS: BP 136/77
[2022-06-09] MEDS: HYDROcodone-ACET 5/325MG TAB PO PRN (00:19)
[2022-06-09 05:00] VITALS: BP 129/65
[2022-06-09] MEDS ORDERED: ALBUTEROL MEDNEB 2.5 mg/3ml NEB ONE ×2 (06:20→12:19)
[2022-06-09] MEDS: ALBUTEROL SULF 2.5 MG/0.5ML(0.5%) NEB SOLN NEB SCH ×2 (07:50→12:46)
[2022-06-09] MEDS: IPRATROPIUM BROM 0.5 MG/2.5ML INH SOL NEB SCH ×2 (07:50→12:46)
[2022-06-09] MEDS: cefTRIAXone 1GM/50ML D5W 50 ML IV SCH (08:44)
[2022-06-09] MEDS: ASPirin 81 mg TAB PO SCH (08:44)
[2022-06-09] MEDS: POTASSIUM CHL 10 Meq TABLET PO SCH (08:44)
[2022-06-09] MEDS: CLOPIDOGREL BISULFATE 75 MG TAB PO SCH (08:44)
[2022-06-09] MEDS: CARVEDILOL 3.125 MG TAB PO SCH (08:45)
[2022-06-09] MEDS: FUROSEMIDE 20 MG TAB PO SCH (08:45)
[2022-06-09] MEDS: predniSONE 20 MG TAB PO SCH (08:46)
[2022-06-09] MEDS: AZITHROMYCIN 250 MG TAB PO SCH (08:46)
[2022-06-09] MEDS: CITALOPRAM HYDROBR 20 MG TAB PO SCH (08:48)
[2022-06-09] MEDS: LISINOPRIL 10 MG TAB PO SCH (08:48)
[2022-06-09] MEDS: DOCUSATE SOD 100 MG CAP PO SCH (08:50)
[2022-06-09 09:00] VITALS: BP 140/64
[2022-06-09 13:00] VITALS: BP 133/73
[2022-06-09] MEDS ORDERED: PRED20TA2 PO (13:14)
[2022-06-09] MEDS ORDERED: AZIT250T9 PO (13:14)
== END 2022-06-09 16:30 | disposition home or self-care (01) | DRG 871 ==
LOC: ER 15:05 → TELE 22:50 → TELE-WESTW 06-04 05:42
PROVIDERS: ADMIT Hospitalist; ATTEND Internal Medicine
DX: A41.9 Sepsis, unspecified organism (principal); I21.A1 Myocardial infarction type 2; J18.9 Pneumonia, unspecified organism; J96.21 Acute and chronic respiratory failure with hypoxia; J44.0 Chronic obstructive pulmonary disease with (acute) lower respiratory infection; J98.11 Atelectasis; N39.0 Urinary tract infection, site not specified; J44.1 Chronic obstructive pulmonary disease with (acute) exacerbation; I50.32 Chronic diastolic (congestive) heart failure; I11.0 Hypertensive heart disease with heart failure; E78.5 Hyperlipidemia, unspecified; F17.210 Nicotine dependence, cigarettes, uncomplicated; Z20.822 Contact with and (suspected) exposure to COVID-19; F32.A Depression, unspecified; F41.9 Anxiety disorder, unspecified; Z80.0 Family history of malignant neoplasm of digestive organs; Z80.3 Family history of malignant neoplasm of breast; Z81.8 Family history of other mental and behavioral disorders; Z82.3 Family history of stroke; Z82.49 Family history of ischemic heart disease and other diseases of the circulatory system; Z83.3 Family history of diabetes mellitus; Z82.5 Family history of asthma and other chronic lower respiratory diseases; Z90.710 Acquired absence of both cervix and uterus
CPT/HCPCS: 36415; 71045; 71046; 71275; 80048; 80053; 81001; 83605; 83880; 84484; 85025; 85379; 86803; 87040; 87070; 87205; 87340; 87426; 87804; 93005; 93306; 93970; 94640; 96365; 96366; 97163; G0378; J0696; J2405

== ENCOUNTER → 2022-11-28 | Outpatient (CLI) | payer MEDICARE, MEDICAID ==
[~2022-11-28] MED LIST changes: +AZIT-43 PO; +PRED20TA2 PO
[2022-11-28 08:08] LABS: Basophils # (auto) 0.1 10 ^3/uL (0-0.2); Eosinophils # (auto) 0.4 10 ^3/uL (0-0.8); Eosinophils % (auto) 5.6 % (0.0-7.0); Hematocrit 39.7 % (36.0-46.0); Hemoglobin 13.4 g/dL (12.2-16.2); Lymphocytes # (auto) 2.1 10 ^3/uL (0.4-5.4); Lymphocytes % (auto) 28.2 % (10.0-50.0); Mean Corpuscular Hemoglobin 30.7 pg (28.0-32.0); Mean Corpuscular Hgb Conc. 33.7 g/dL (32.0-36.0); Mean Corpuscular Volume 91.1 fL (80.0-100.0); Monocytes # (auto) 0.8 10 ^3/uL (0-1.3); Monocytes % (auto) 10.9 % (0.0-12.0); Neutrophils # (auto) 4.1 10 ^3/uL (1.6-8.6); Neutrophils % (auto) 54.3 % (37.0-80.0); Nucleated Red Blood Cells % 0.1 %; Red Blood Cells 4.36 10^6/uL (4.0-5.20); Red Cell Distribution Width 14.9 % (11.8-14.3); White Blood Cell 7.5 10^3/uL (4.4-10.8)
[2022-11-28 08:29] LABS: Potassium 4.9 mmol/L (3.5-5.1)
[2022-11-28 08:37] LABS: BUN/Creatinine Ratio 23.9 (10.0-20.0); Bilirubin, Total 0.2 mg/dL (0.2-1.0); Calcium 9.1 mg/dL (8.5-10.1); Total Protein 7.7 g/dL (6.4-8.2)
== END | disposition home or self-care (01) ==
LOC: LAB 07:23
PROVIDERS: ATTEND Nurse Practitioner Family
DX: I50.32 Chronic diastolic (congestive) heart failure (principal); F41.9 Anxiety disorder, unspecified; R73.03 Prediabetes
CPT/HCPCS: 36415; 80053; 80061; 83036; 84439; 84443; 85025